=== PATIENT | male | born 1940 | race Caucasian/White ===

== ENCOUNTER 2018-09-23 20:28 | Inpatient (IN) | payer MEDICARE ==
--- NOTE | 2018-09-23 21:09 | RAD REPORT ---
EXAM DESCRIPTION: RAD - Chest Single View - 09/23/2018 9:03 pm CLINICAL HISTORY: MALAISE Chest pain. COMPARISON: No comparisons FINDINGS: Portable technique limits examination quality. Emphysematous changes are present throughout the lungs. The heart is normal in size. Healed posterior left rib fractures. IMPRESSION: COPD.
--- NOTE | 2018-09-23 21:10 | RAD REPORT ---
EXAM DESCRIPTION: RAD - Hip Right 2 View - 09/23/2018 9:03 pm CLINICAL HISTORY: PAIN Trauma, fall, pain COMPARISON: No comparisons FINDINGS: Subcapital fracture is present of the proximal right femur with varus angulation. No dislo cation seen.
[2018-09-23] MEDS ORDERED: MORPHINE 4 MG/ML SYR ONE ×2 (21:55→23:21)
[2018-09-23 22:02] LABS: Absolute Lymphocytes (CBC) 1.1 K/uL (0.7-4.9); Absolute Monocytes 0.8 K/uL (0.1-1.3); Absolute Neutrophil 6.1 K/uL (1.8-8.0); Basophils % 1.1 % (0-1.3); Eosinophils % 3.1 % (0-4.4); Hematocrit 40.5 % (39.6-49.0); MPV 7.3 fL (7.6-11.3); Monocytes % 9.6 % (3.3-12.3); RBC Red Blood Cell Count 4.61 M/uL (4.33-5.43)
[2018-09-23 22:03] LABS: Protime INR 1.06
[2018-09-23 22:09] LABS: BUN Blood Urea Nitrogen 19 mg/dL (7-18); Bicarbonate 30 mmol/L (21-32); Glucose Level 136 mg/dL (74-106); Potassium 4.5 mmol/L (3.5-5.1); Sodium Level 143 mmol/L (136-145)
--- NOTE | 2018-09-23 22:40 | ER ---
Nurse's Notes [facility] Name: Sterling Moe Age: 78 yrs Sex: Male : 1940 Arrival Date: 09/23/2018 Time: 20:36 Bed 8 Private MD: Diagnosis: Displaced fracture of base of neck of right femur Presentation: 09/23 20:30 Presenting complaint: EMS states: that pt was going down 3 steps and slipped. Negative fc LOC or dizziness. C/O pain to right hip. Noted shorting and external rotation. Care prior to arrival: Cervical collar in place. Placed on backboard. Medication(s) given: zofran 4 mg, Fentanyl 75 mcg IV initiated. 20 GA, in the right forearm, Glucose check: 118. Mechanism of Injury: Fall down 3 steps. Trauma event details: Injury occurred in the [facility], Injury occurred: at home. Injury occurred: September 23, 2018 Injury occurred at: 19:55. 20:30 Acuity: EDVIN 2 fc 20:30 Method Of Arrival: EMS: [facility] 20:30 Transition of care: patient was not received from another setting of care. Onset of fc symptoms was September 23, 2018 at 19:55. Risk Assessment: Do you want to hurt yourself or someone else? Patient reports no desire to harm self or others. Initial Sepsis Screen: Does the patient meet any 2 criteria? HR > 90 bpm. No. Patient's initial sepsis screen is negative. Does the patient have a suspected source of infection? No. Patient's initial sepsis screen is negative. Trauma Activation: Alert Physician: ED Physician; Name: Mora; Notified At: 20:34; Arrived At: 20:34 Physician: General Surgeon; Name: ; Notified At: 20:34; Arrived At: Physician: Radiology; Name: Denia; Notified At: 20:34; Arrived At: 20:34 Physician: Respiratory; Name: ; Notified At: 20:34; Arrived At: Physician: Lab; Name: ; Notified At: 20:34; Arrived At: Historical: - Allergies: 20:48 No Known Allergies; fc - Home Meds: 20:48 Colace 100 mg oral cap 1 cap once daily [Active]; aspirin 81 mg Oral TbEC 1 tab once fc daily [Active]; montelukast 10 mg oral tab 1 tab once daily [Active]; lisinopril 10 mg Oral tab 1 tab once daily [Active]; rosuvastatin 20 mg oral tab 1 tab once daily [Active]; ezetimibe oral oral 1 tab once daily [Active]; donepezil 10 mg oral tab 1 tab once daily [Active]; carbidopa-levodopa 25-100 mg Oral tab 2 tabs 4 times per day [Active]; Phenytoin ER 100 mg cap Oral 4 cap daily [Active]; - PMHx: 20:48 Parkinsons; High Cholesterol; Hyperlipidemia; Hypertension; Diabetes - NIDDM; Seizures; fc - PSHx: 20:48 Appendectomy; fc - Immunization history: Last tetanus immunization: unknown. - Social history:: Smoking status: Patient/guardian denies using tobacco, Patient/guardian denies using alcohol, street drugs. - Ebola Screening: : Patient negative for fever greater than or equal to 101.5 degrees Fahrenheit, and additional compatible Ebola Virus Disease symptoms Patient denies exposure to infectious person Patient denies travel to an Ebola-affected area in the 21 days before illness onset. Screenin:30 Abuse screen: Denies threats or abuse. Tuberculosis screening: No symptoms or risk fc factors identified. 20:42 Nutritional screening: No deficits noted. Fall Risk Fall in past 12 months (25 points). fc Secondary diagnosis (15 points) impaired mobility, Parkinsons. IV access (20 points). Ambulatory Aid- None/Bed Rest/Nurse Assist (0 pts). Gait- Weak (10 pts.). Mental Status- Overestimates/Forgets Limitations (15 pts.). Total Vee Fall Scale indicates High Risk Score (45 or more points). Fall prevention measures have been instituted. Side Rails Up X 2 Placed Close to Nursing Station Frequent Obs/Assessments Occuring Family Present and informed to notify staff if the need to leave the bedside As available patient and family educated on Fall Prevention Program and Strategies. Primary Survey: 20:30 NO uncontrolled hemorrhage observed. A: The patient is alert. Airway: patent, No lp1 supplemental oxygen in use on arrival. Breathing/Chest: Respiratory pattern: regular, Respiratory effort: spontaneous, unlabored, Breath sounds: clear, bilaterally. Chest inspection: symmetrical rise and fall of the chest. Circulation: Skin temperature: warm, dry. Disability Alert. Exposure/Environment: Obvious injury(ies) are noted at this time: Right leg noted to be externally rotated; pulses palpable to dorsalis pedis. 21:30 Reassessment Airway Airway Patent Breathing/Chest Respiratory pattern Regular lp1 Respiratory effort Spontaneous Unlabored Circulation Temperature Warm Dry Disability Alert. Secondary Survey: 20:30 HEENT: No deficits noted. Gastrointestinal: No deficits noted. : No deficits noted. lp1 Musculoskeletal: Range of motion: limited in right hip. Assessment: 20:30 General: Appears uncomfortable, Behavior is appropriate for age. Pain: Complains of lp1 pain in right hip Pain currently is 9 out of 10 on a pain scale. Neuro: Level of Consciousness is awake, alert, obeys commands, Oriented to person, place, situation, Pupils are PERRLA. EENT: No deficits noted. Cardiovascular: Patient's skin is warm and dry. Pulses are 2+ in right dorsalis pedis artery and left dorsalis pedis artery. Respiratory: Airway is patent Respiratory effort is even, unlabored, Respiratory pattern is regular, symmetrical, Breath sounds are clear bilaterally. GI: Abdomen is flat. : No deficits noted. Derm: Skin is fragile, is thin, Skin is dry, Skin is pale. Musculoskeletal: Circulation, motion, and sensation intact. Capillary refill < 3 seconds, in bilateral toes. 21:00 Reassessment: Tiny from [facility] called for update on patient; Will call [facility] at [phone]. 21:45 Reassessment: Patient states discomfort with C-collar in place; aware of need for CT lp1 results before removing C-collar;. 22:16 Reassessment: Patient states no relief from Morphine administered; continued pain to lp1 right hip; Provider notified. 22:35 Reassessment: Patient appears more comfortable after removal of C-collar. lp1 23:32 Reassessment: Patient states no relief from Morphine administered; Patient and daughter lp1 aware of pending admission;. 23:33 Cardiovascular: Pulses are 2+ in right dorsalis pedis artery and left dorsalis pedis lp1 artery. 09/24 00:12 Reassessment: Tiny from [facility] updated on patient begin admitted to [address] Vital Signs: 09/23 20:30 BP 164 / 76; Pulse 93; Resp 18; Temp 98.4(O); Pulse Ox 99% on R/A; Weight 72.57 kg (R); fc Height 6 ft. 2 in. (187.96 cm) (R); Pain 3/10; 22:00 BP 166 / 87; Pulse 93; Resp 18; Pulse Ox 97% on R/A; lp1 22:45 BP 153 / 80; Pulse 92; Resp 18; Pulse Ox 98% on R/A; 1 23:30 BP 164 / 71; Pulse 96; Resp 18; Pulse Ox 98% on R/A; Pain 9/10; lp1 04 00:31 BP 167 / 72; Pulse 92; Resp 18; Pulse Ox 98% on R/A; [facility] 09/23 20:30 Body Mass Index 20.54 (72.57 kg, 187.96 cm) fc Aiken Coma Score: 09/23 20:30 Eye Response: spontaneous(4). Verbal Response: oriented(5). Motor Response: obeys fc commands(6). Total: 15. Trauma Score (Adult): 20:30 Eye Response: spontaneous(1); Verbal Response: oriented(1); Motor Response: obeys fc commands(2); Systolic BP: > 89 mm Hg(4); Respiratory Rate: 10 to 29 per min(4); Hood Score: 15; Trauma Score: 12 22:00 Eye Response: spontaneous(1); Verbal Response: oriented(1); Motor Response: obeys lp1 commands(2); Systolic BP: > 89 mm Hg(4); Respiratory Rate: 10 to 29 per min(4); Aiken Score: 15; Trauma Score: 12 ED Course: 20:30 Patient has correct armband on for positive identification. Bed in low position. Call fc light in reach. Side rails up X2. 20:30 Arm band placed on Patient placed in an exam room, on a stretcher. fc 20:30 Patient maintains SpO2 saturation greater than 95% on room air. fc 20:32 Thermoregulation: warm blanket given to patient. fc 20:36 Patient arrived in ED. fc 20:36 Karlo Velazco MD is Attending Physician. gs 20:39 Triage completed. fc 20:42 personnel monitor on. Pulse ox on. NIBP on. fc 21:00 Maintain EMS IV. Dressing intact. Site clean \T\ dry. Gauge \T\ site: 20g R FA. lp 1 21:03 XRAY CXR (1 view) In Process Unspecified. EDMS 21:03 Hip Right 2 View XRAY In Process Unspecified. EDMS 21:06 CT Head C Spine In Process Unspecified. EDMS 21:07 Susanna Emanuel, RN is Primary Nurse. lp1 21:53 Inserted saline lock: 20 gauge in right antecubital area, using aseptic technique. ag4 Blood collected. 21:53 EKG done, by ED staff, reviewed by Karlo eVlazco MD. ag4 22:39 Mariano Flores MD is Hospitalizing Provider. gs 23:31 No provider procedures requiring assistance completed. Patient admitted, IV remains in lp1 place. Administered Medications: 21:46 Drug: morphine 4 mg Route: IVP; Site: right antecubital; lp1 22:10 Follow up: Response: Pain is unchanged, physician notified lp1 23:12 Drug: morphine 4 mg Route: IVP; Site: right antecubital; lp1 23:40 Follow up: Response: Pain is unchanged, physician notified lp1 Intake: 23:30 PO: 0ml; Total: 0ml. lp1 Output: 23:30 Urine: 0ml; Total: 0ml. lp1 Outcome: 22:39 Decision to Hospitalize by Provider. gs 23:32 Condition: stable lp1 23:32 Instructed on the need for admit. 23:44 Patient's length of stay in the Emergency Department was greater than 2 hours. pending lp1 imaging results Patient's length of stay extended due to 04/ 00:14 Admitted to Tele accompanied by tech, via stretcher, room 422, with chart, Report lp1 called to Ela Cook RN by Patience Hankins RN 00:31 Patient left the ED. lp1 Signatures: Dispatcher [employer] Leeanne Norris, JANET GONZALES Susanna Emanuel, JANET RN lp1 Karlo Velazco MD MD Leonides Mahoney ag4 Corrections: (The following items were deleted from the chart) 09/23 23:34 20:30 Cardiovascular: Patient's skin is warm and dry. Pulses are absent in right lp1 dorsalis pedis artery and left dorsalis pedis artery lp1 23:34 23:32 Reassessment: Patient states no relief from Morphine administered; Patient and lp1 daughter aware of pending admission; lp1
--- NOTE | 2018-09-23 22:40 | EDPHYS ---
Physician Documentation [facility] Name: Sterling Moe Age: 78 yrs Sex: Male : 1940 Arrival Date: 09/23/2018 Time: 20:36 Bed 8 Private MD: ED Physician Karlo Velazco HPI: 09/23 22:29 This 78 yrs old Male presents to ER via EMS with complaints of Fall Injury. gs 22:29 Details of fall: The patient fell from an upright position, while walking, fell down gs 2-3 steps. Onset: The symptoms/episode began/occurred acutely, just prior to arrival. Associated injuries: The patient sustained injury to the head, neck injury, right hip, obvious fracture. Severity of symptoms: At their worst the symptoms were severe, in the emergency department the symptoms are unchanged. The patient has not experienced similar symptoms in the past. The patient has not recently seen a physician. Historical: - Allergies: 20:48 No Known Allergies; fc - Home Meds: 20:48 Colace 100 mg oral cap 1 cap once daily [Active]; aspirin 81 mg Oral TbEC 1 tab once fc daily [Active]; montelukast 10 mg oral tab 1 tab once daily [Active]; lisinopril 10 mg Oral tab 1 tab once daily [Active]; rosuvastatin 20 mg oral tab 1 tab once daily [Active]; ezetimibe oral oral 1 tab once daily [Active]; donepezil 10 mg oral tab 1 tab once daily [Active]; carbidopa-levodopa 25-100 mg Oral tab 2 tabs 4 times per day [Active]; Phenytoin ER 100 mg cap Oral 4 cap daily [Active]; - PMHx: 20:48 Parkinsons; High Cholesterol; Hyperlipidemia; Hypertension; Diabetes - NIDDM; Seizures; fc - PSHx: 20:48 Appendectomy; fc - Immunization history: Last tetanus immunization: unknown. - Social history:: Smoking status: Patient/guardian denies using tobacco, Patient/guardian denies using alcohol, street drugs. - Ebola Screening: : Patient negative for fever greater than or equal to 101.5 degrees Fahrenheit, and additional compatible Ebola Virus Disease symptoms Patient denies exposure to infectious person Patient denies travel to an Ebola-affected area in the 21 days before illness onset. ROS: 22:29 All other systems are negative. gs Exam: 22:29 Head/Face: Normocephalic, atraumatic. Eyes: Pupils equal round and reactive to light, gs extra-ocular motions intact. Lids and lashes normal. Conjunctiva and sclera are non-icteric and not injected. Cornea within normal limits. Periorbital areas with no swelling, redness, or edema. ENT: Nares patent. No nasal discharge, no septal abnormalities noted. Tympanic membranes are normal and external auditory canals are clear. Oropharynx with no redness, swelling, or masses, exudates, or evidence of obstruction, uvula midline. Mucous membranes moist. Chest/axilla: Normal chest wall appearance and motion. Nontender with no deformity. No lesions are appreciated. Cardiovascular: Regular rate and rhythm with a normal S1 and S2. No gallops, murmurs, or rubs. Normal PMI, no JVD. No pulse deficits. Respiratory: Lungs have equal breath sounds bilaterally, clear to auscultation and percussion. No rales, rhonchi or wheezes noted. No increased work of breathing, no retractions or nasal flaring. Abdomen/GI: Soft, non-tender, with normal bowel sounds. No distension or tympany. No guarding or rebound. No evidence of tenderness throughout. Back: No spinal tenderness. No costovertebral tenderness. Full range of motion. 22:29 Skin: Warm, dry with normal turgor. Normal color with no rashes, no lesions, and no evidence of cellulitis. Neuro: Awake and alert, GCS 15, oriented to person, place, time, and situation. Cranial nerves II-XII grossly intact. Motor strength 5/5 in all extremities. Sensory grossly intact. Cerebellar exam normal. Normal gait. 22:29 Constitutional: The patient appears alert, awake, in obvious distress, severely distressed. 22:29 Neck: C-spine: C-collar placed APPLIQUE CUTTER, Back board APPLIQUE CUTTER 22:29 Musculoskeletal/extremity: Circulation is intact in all extremities. Sensation intact. Joints: the right hip displays deformity, limited range of motion, pain at rest, painful range of motion, tenderness. Vital Signs: 20:30 BP 164 / 76; Pulse 93; Resp 18; Temp 98.4(O); Pulse Ox 99% on R/A; Weight 72.57 kg (R); fc Height 6 ft. 2 in. (187.96 cm) (R); Pain 3/10; 22:00 BP 166 / 87; Pulse 93; Resp 18; Pulse Ox 97% on R/A; lp1 22:45 BP 153 / 80; Pulse 92; Resp 18; Pulse Ox 98% on R/A; lp1 23:30 BP 164 / 71; Pulse 96; Resp 18; Pulse Ox 98% on R/A; Pain 9/10; lp1 04 00:31 BP 167 / 72; Pulse 92; Resp 18; Pulse Ox 98% on R/A; lp1 09/23 20:30 Body Mass Index 20.54 (72.57 kg, 187.96 cm) fc Fertile Coma Score: 09/23 20:30 Eye Response: spontaneous(4). Verbal Response: oriented(5). Motor Response: obeys fc commands(6). Total: 15. Trauma Score (Adult): 20:30 Eye Response: spontaneous(1); Verbal Response: oriented(1); Motor Response: obeys fc commands(2); Systolic BP: > 89 mm Hg(4); Respiratory Rate: 10 to 29 per min(4); Hood Score: 15; Trauma Score: 12 22:00 Eye Response: spontaneous(1); Verbal Response: oriented(1); Motor Response: obeys lp1 commands(2); Systolic BP: > 89 mm Hg(4); Respiratory Rate: 10 to 29 per min(4); Fertile Score: 15; Trauma Score: 12 MDM: 20:42 Patient medically screened. gs 22:29 Differential diagnosis: closed head injury, fracture, multiple trauma, sprain. Data gs reviewed: vital signs, nurses notes. Counseling: I had a detailed discussion with the patient and/or guardian regarding: the historical points, exam findings, and any diagnostic results supporting the discharge/admit diagnosis, lab results, radiology results, the need for further work-up and treatment in the hospital. Response to treatment: the patient's symptoms have mildly improved after treatment, and as a result, I will admit patient. 09/23 20:45 Order name: Basic Metabolic Panel; Complete Time: 23:08 09/23 20:45 Order name: CBC with Diff; Complete Time: 23:08 09/23 20:45 Order name: Protime (+inr); Complete Time: 23:09 09/23 20:45 Order name: XRAY CXR (1 view); Complete Time: 21:57 09/23 20:45 Order name: Hip Right 2 View XRAY; Complete Time: 21:57 09/23 20:45 Order name: CT Head C Spine 09/23 20:45 Order name: EKG - Nurse/Tech; Complete Time: 22:08 Administered Medications: 21:46 Drug: morphine 4 mg Route: IVP; Site: right antecubital; lp1 22:10 Follow up: Response: Pain is unchanged, physician notified lp1 23:12 Drug: morphine 4 mg Route: IVP; Site: right antecubital; lp1 23:40 Follow up: Response: Pain is unchanged, physician notified lp1 Disposition: 09/23/18 22:39 Hospitalization ordered by Mariano Flores for Inpatient Admission. Preliminary diagnosis is Displaced fracture of base of neck of right femur. - Bed requested for Telemetry/MedSurg (Inpatient). - Status is Inpatient Admission. lp1 - Condition is Stable. - Problem is new. - Symptoms have improved. UTI on Admission? No Critical care time excluding procedures: 22:40 Critical care time: Bedside Care: 10 minutes, Consultation: 10 minutes, Family gs Intervention: 10 minutes. Total time: 30 minutes Signatures: Dispatcher [employer] EDLeeanne Ernandez RN RN Susanna Emanuel RN RN [facility] Aruna Washington RN RN Karlo Velazco MD MD Corrections: (The following items were deleted from the chart) 23:17 22:39 Hospitalization Ordered by Mariano Flores MD for Inpatient Admission. Preliminary cg diagnosis is Displaced fracture of base of neck of right femur. Bed requested for Telemetry/MedSurg (Inpatient). Status is Inpatient Admission. Condition is Stable. Problem is new. Symptoms have improved. UTI on Admission? No. 09/24 00:31 09/23 23:17 09/23/2018 22:39 Hospitalization Ordered by Mariano Flores MD for Inpatient lp1 Admission. Preliminary diagnosis is Displaced fracture of base of neck of right femur. Bed requested for Telemetry/MedSurg (Inpatient). Status is Inpatient Admission. Condition is Stable. Problem is new. Symptoms have improved. UTI on Admission? No. cg
--- NOTE | 2018-09-23 23:18 | P.HP ---
Certification for Inpatient Patient admitted to: Inpatient With expected LOS: >2 Midnights Practitioner: I am a practitioner with admitting privileges, knowledge of patient current condition, hospital course, and medical plan of care. Services: Services provided to patient in accordance with Admission requirements found in Title 42 Section 412.3 of the Code of Federal Regulations Patient History Date of Service: 09/23/18 Reason for admission: right hip fracture History of Present Illness: Mr Moe is a 78 years old male with history of COPD, HTN, dyslipidemia, seizure disorder, DM II, who unfortunately fell to the ground landing over his right side. Immediately he start feeling significant right hip pain, and he was unable to bear weight. He denied dizziness or palpitations prior to the fall. He states that misstep and fell. Lab work is mostly unremarkable. Right pelvic XR remarkable for subcapital fracture of right proximal femur. He is afebrile, BP 176/64, O2 sat 99% on RA. Home medications list reviewed: Yes - Past Medical/Surgical History -: COPD -: HTN -: Parkinson's disease -: dyslipidemia -: DM II -: seizures -: appendectomy - Family History Family History: Reviewed- Non-Contributory - Social History Smoking Status: Former smoker CD- Drugs: No Place of Residence: Home Review of Systems 10-point ROS is otherwise unremarkable Physical Examination - Physical Exam General: Alert, In no apparent distress HEENT: Atraumatic, PERRLA, Mucous membr. moist/pink, EOMI, Sclerae nonicteric Neck: Supple, 2+ carotid pulse no bruit, No LAD, Without JVD or thyroid abnormality Respiratory: Clear to auscultation bilaterally, Normal air movement Cardiovascular: Regular rate/rhythm, Normal S1 S2 Gastrointestinal: Normal bowel sounds, No tenderness Musculoskeletal: No tenderness Integumentary: No rashes Neurological: Normal gait, Normal speech, Normal strength at 5/5 x4 extr, Normal tone, Normal affect Lymphatics: No axilla or inguinal lymphadenopathy - Studies Laboratory Data (last 24 hrs) 09/23/18 21:48: PT 12.5, INR 1.06 09/23/18 21:48: WBC 8.3, Hgb 13.5 L, Hct 40.5, Plt Count 427 H 09/23/18 21:48: Sodium 143, Potassium 4.5, BUN 19 H, Creatinine 0.73, Glucose 136 H Assessment and Plan - Problems (Diagnosis) (1) Hip fracture Current Visit: Yes Status: Acute Qualifiers: Encounter type: initial encounter Fracture type: closed Laterality: right Qualified Code(s): S72.001A - Fracture of unspecified part of neck of right femur, initial encounter for closed fracture (2) Diabetes mellitus Current Visit: Yes Status: Acute Qualifiers: Diabetes mellitus type: type 2 Diabetes mellitus detention insulin use: without detention use Diabetes mellitus complication status: with unspecified complications Qualified Code(s): E11.8 - Type 2 diabetes mellitus with unspecified complications (3) Seizure disorder Current Visit: Yes Status: Acute (4) COPD (chronic obstructive pulmonary disease) Current Visit: Yes Status: Acute Qualifiers: COPD type: emphysema Emphysema type: unspecified Qualified Code(s): J43.9 - Emphysema, unspecified (5) HTN (hypertension) Current Visit: Yes Status: Acute Qualifiers: Hypertension type: essential hypertension Qualified Code(s): I10 - Essential (primary) hypertension (6) Parkinson disease Current Visit: Yes Status: Acute - Plan The patient will be admitted to the hospital due to right hip fracture. Will keep him NPO, start IV fluids, pain control, SSI for BS control. Dr Domínguez was consulted, he will see the patient in AM. - Advance Directives Does patient have a Living Will: No Does patient have a Durable POA for Healthcare: No - Code Status/Comfort Care Code Status Assessed: Yes Code Status: Full Code
[2018-09-23] MEDS ORDERED: IPRATROPIUM BROM 0.5MG/2.5ML NEB PRN (23:42)
[2018-09-23] MEDS ORDERED: ALBUTEROL 2.5 MG/3 ML NEB SOL NEB PRN (23:42)
[2018-09-23] MEDS ORDERED: ONDANSETRON 4 MG/2 ML VIAL IV PRN (23:42)
[2018-09-23] MEDS ORDERED: KETOROLAC 30 MG/ML INJ IV PRN (23:42)
[2018-09-23] MEDS ORDERED: MORPHINE 2 MG/ML SYR IV PRN (23:42)
[2018-09-24] MEDS: NA CHLORIDE 0.9% 1,000 ML IV SCH ×3 (01:13→21:01)
[2018-09-24 05:02] LABS: Absolute Lymphocytes (CBC) 1.2 K/uL (0.7-4.9); Absolute Monocytes 1.2 K/uL (0.1-1.3); Absolute Neutrophil 8.5 K/uL (1.8-8.0); Basophils % 0.8 % (0-1.3); Eosinophils % 1.5 % (0-4.4); Hematocrit 39.2 % (39.6-49.0); Lymphocytes % 10.9 % (15.3-44.8); MPV 7.2 fL (7.6-11.3); RBC Red Blood Cell Count 4.42 M/uL (4.33-5.43)
[2018-09-24 05:16] LABS: BUN Blood Urea Nitrogen 21 mg/dL (7-18); Bicarbonate 29 mmol/L (21-32); Glucose Level 133 mg/dL (74-106); Sodium Level 141 mmol/L (136-145)
[2018-09-24] MEDS: INSULIN -REGULAR HUMAN 50 UNIT/0.5 ML ML SQ SCH ×5 (06:00→21:00)
[2018-09-24] MEDS: KETOROLAC 30 MG/ML INJ IV PRN ×2 (10:58→17:46)
[2018-09-24] MEDS: EZETIMIBE 10 MG TAB PO SCH (11:42)
[2018-09-24] MEDS: LISINOPRIL 10 MG TAB PO SCH (11:42)
[2018-09-24] MEDS: CARBIDOPA/LEVODOPA 25/100 TAB PO SCH ×3 (11:43→21:01)
[2018-09-24] MEDS: DOCUSATE NA 100 MG CAP PO SCH (11:43)
[2018-09-24] MEDS: MONTELUKAST 10 MG TAB PO SCH (11:43)
--- NOTE | 2018-09-24 12:12 | RAD REPORT ---
EXAM DESCRIPTION: CT - Head C Spine Mpr Wo Con - 09/23/2018 9:31 pm CLINICAL HISTORY: The patient is 78 years old and is Male; PAIN TECHNIQUE: Axial computed tomography images of the head/brain and cervical spine without intravenous contrast. Sagittal and coronal reformatted images were created and reviewed. This CT exam was pe rformed using one or more of the following dose reduction techniques: automated exposure control, a djustment of the mA and/or kV according to patient size, and/or use of iterative reconstruction techn ique. COMPARISON: No relevant prior studies available. FINDINGS: BRAIN: There is diffuse cerebral atrophy present, consistent with this patient's age. There is patchy hypoattenuation of the deep white matter which is non-specific, but most likely owing to chronic small vessel ischemic change in a patient of this age group. 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 No intracranial hemorrhage, mass effect, or midline shift is seen. There are no extra-axial fluid collections. VENTRICLES: Unremarkable. No ventriculomegaly. SKULL: No acute fracture. SINUSES: Mucoperiosteal thickening of the ethmoid air cells and right maxillary sinus is present . Large slightly heterogeneous density within the left maxillary sinus is present. The uvula appears to be significantly enlarged. The appearance suggests possible continuity with the ostiomeatal comple x and paranasal sinuses. MASTOID AIR CELLS: Unremarkable as visualized. No mastoid effusion. VERTEBRAE: The vertebral body heights and alignment are maintained. No acute fracture. DISCS/SPINAL CANAL/NEURAL FORAMINA: There is multi-level intervertebral disc height loss. There are disc-osteophyte complexes at several levels, with associated mild spinal canal narrowing. There i s also facet hypertrophy and uncovertebral joint osteophytosis, with associated multilevel neural for aminal narrowing. SOFT TISSUES: The soft tissues are normal. LUNG APICES: The lung apices are clear. IMPRESSION: 1. No acute intracranial findings. 2. Findings suggestive of a large left maxillary sinus mucus retention cyst versus polyp. 3. Moderate spondylosis of the cervical spine without acute findings. 4. Apparent enlargement of the uvula with concern for continuity with the ostiomeatal complex and t he paranasal sinuses. This raises the possibility of an antrochoanal polyp. Recommend direct visualiz ation. Electronically signed by: Lizzeth Deleon MD 09/23/2018 9:43 PM CDT Due to temporary technical issues with the PACS/Fluency reporting system, reports are being signed by the in house radiologist as a courtesy to ensure prompt reporting. The interpreting radiologist is f ully responsible for the content of the report.
--- NOTE | 2018-09-24 16:09 | P.PN ---
Subjective Date of Service: 09/24/18 Chief Complaint: right hip fracture Subjective: No C/O voiced, Tolerating diet, Doing well, Other (Rescheduled for Surgery evangelist AM. Denies any SOB, CP, N/V or any other symptoms) Review of Systems 10-point ROS is otherwise unremarkable Physical Examination - Vital Signs Temperature: 98.6 F Blood Pressure: 149/68 Pulse: 83 Respirations: 17 Pulse Ox (%): 99 - Physical Exam General: Alert, In no apparent distress HEENT: Atraumatic, PERRLA, EOMI Neck: Supple, JVD not distended Respiratory: Clear to auscultation bilaterally, Normal air movement Cardiovascular: Regular rate/rhythm, Normal S1 S2 Gastrointestinal: Normal bowel sounds, No tenderness Musculoskeletal: No tenderness Integumentary: No rashes Neurological: Normal speech, Normal tone, Normal affect Lymphatics: No axilla or inguinal lymphadenopathy - Studies Laboratory Data (last 24 hrs) 09/23/18 21:48: PT 12.5, INR 1.06 09/23/18 21:48: WBC 8.3, Hgb 13.5 L, Hct 40.5, Plt Count 427 H 09/23/18 21:48: Sodium 143, Potassium 4.5, BUN 19 H, Creatinine 0.73, Glucose 136 H Medications List Reviewed: Yes Assessment And Plan - Current Problems (Diagnosis) (1) Hip fracture Current Visit: Yes Status: Acute Plan: Hip Fracture s.p Fall -Fall precautions. -orthopedics Consulted. Reccs Appreciated -OR procedure evangelist AM -NPO after midnight -repeat lab in AM Qualifiers: Encounter type: initial encounter Fracture type: closed Laterality: right Qualified Code(s): S72.001A - Fracture of unspecified part of neck of right femur, initial encounter for closed fracture (2) COPD (chronic obstructive pulmonary disease) Current Visit: Yes Status: Chronic Qualifiers: COPD type: emphysema Emphysema type: unspecified Qualified Code(s): J43.9 - Emphysema, unspecified (3) Diabetes mellitus Current Visit: Yes Status: Chronic Qualifiers: Diabetes mellitus type: type 2 Diabetes mellitus terminal manager insulin use: without terminal manager use Diabetes mellitus complication status: with unspecified complications Qualified Code(s): E11.8 - Type 2 diabetes mellitus with unspecified complications (4) HTN (hypertension) Current Visit: Yes Status: Chronic Qualifiers: Hypertension type: essential hypertension Qualified Code(s): I10 - Essential (primary) hypertension (5) Parkinson disease Current Visit: Yes Status: Chronic (6) Seizure disorder Current Visit: Yes Status: Chronic - Plan Pending Improvement. OR procedure evangelist AM. NPO after midnight. F.u post procedure Discharge Plan: Home Plan to discharge in: Greater than 2 days - Code Status/Comfort Care Code Status Assessed: Yes Critical Care: No
--- NOTE | 2018-09-24 17:20 | P.CNS ---
Date of Consult: 09/24/18 Reason for Consult: Right hip fracture Requesting Physician: Karlo Velazco Chief Complaint: Right hip fracture History of Present Illness: This 78-year-old male was walking in the dark and forgot about 3 steps down at the end of the [place] to step off in the air and tumble down those steps. He denies dizziness or loss of consciousness and currently denies injury to head or neck or back. Brought to the emergency department at [facility], x-rays have shown a displaced femoral neck fracture right hip proximal femur. Allergies No Known Allergies Allergy (Unverified 09/23/18 23:30) Home Medications: Aspirin 81 mg PO DAILY 09/24/18 Carbidopa/Levodopa [Carbidopa-Levo 25-100 mg Odt] 2 tab PO QID 09/24/18 Docusate [Colace Cap] 100 mg PO DAILY 09/24/18 Donepezil HCl 10 mg PO DAILY 09/24/18 Ezetimibe [Zetia] 10 mg PO DAILY 09/24/18 Lisinopril [Prinivil] 10 mg PO DAILY 09/24/18 Montelukast [Singulair] 10 mg PO DAILY 09/24/18 PHENYTOIN ER Cap [Dilantin ER Cap] 4 cap PO BEDTIME 09/24/18 Rosuvastatin Calcium [Crestor] 20 mg PO BEDTIME 09/24/18 - Past Medical/Surgical History Diabetic: Yes -: COPD -: HTN -: Parkinson's disease -: dyslipidemia -: DM II -: seizures -: appendectomy - Family History Mother Medical History: Heart disease, Diabetes Father Medical History: Heart disease, Diabetes - Social History Alcohol use: No CD- Drugs: No Caffeine use: Yes Place of Residence: Home Review of Systems 10-point ROS is otherwise unremarkable Physical Examination Temp Pulse Resp BP Pulse Ox 98.6 F 83 17 149/68 H 99 09/24/18 16:08 09/24/18 16:08 09/24/18 16:08 09/24/18 16:08 09/24/18 16:08 General: In no apparent distress, Oriented x3, Cooperative HEENT: Atraumatic, Normocephalic Neck: Supple Respiratory: Clear to auscultation bilaterally, Normal air movement Cardiovascular: Normal pulses Capillary refill: Brisk Gastrointestinal: Normal bowel sounds, Soft and benign, Non-distended Musculoskeletal: Swelling (mild pedal edema with the right foot externally rotated and shortened right lower extremity.), Tenderness (with any significant movement of the right lower extremity.) Integumentary: No breakdown, No significant lesion Neurological: Sensation intact External genitalia: Deferred Rectal: Deferred Laboratory Data (last 24 hrs) 09/23/18 21:48: PT 12.5, INR 1.06 09/23/18 21:48: WBC 8.3, Hgb 13.5 L, Hct 40.5, Plt Count 427 H 09/23/18 21:48: Sodium 143, Potassium 4.5, BUN 19 H, Creatinine 0.73, Glucose 136 H Imagings Data: CT head and neck done 12/23/[address] [facility] radiology IMPRESSION: 1. No acute intracranial findings. 2. Findings suggestive of a large left maxillary sinus mucus retention cyst versus polyp. 3. Moderate spondylosis of the cervical spine without acute findings. 4. Apparent enlargement of the uvula with concern for continuity with the ostiomeatal complex and the paranasal sinuses. This raises the possibility of an antrochoanal polyp. Recommend direct visualization RAD - Hip Right 2 View - 09/23/2018 9:03 pm CLINICAL HISTORY: PAIN Trauma, fall, pain COMPARISON: No comparisons FINDINGS: Subcapital fracture is present of the proximal right femur with varus angulation. No dislocation seen. Dictated By: Tyler Brink MD [id number]/23/[id number] - Problems (1) Closed displaced fracture of right femoral neck Current Visit: Yes Status: Acute (2) Hip fracture Onset Date: ~09/23/18 Current Visit: Yes Status: Acute Plan: Assessment: Closed displaced right femoral neck fracture is recommended for insertion of a cemented unipolar juan-plasty prosthesis. Risks and benefits were discussed at length with the patient and daughter with all questions answered, and they both elected to proceed with an elective insertion of hip prosthesis for the right femoral neck fracture. Plan: The patient will be npo after midnight, and scheduled to follow an arthroscopic procedure on 09/25/2018 at approximately 9:30 to 10:00. Qualifiers: Encounter type: initial encounter Fracture type: closed Laterality: right Qualified Code(s): S72.001A - Fracture of unspecified part of neck of right femur, initial encounter for closed fracture
[2018-09-24] MEDS ORDERED: CEFAZOLIN/SWI 1gm 1 GM/10 ML SYR IV SCH (18:15)
[2018-09-24] MEDS ORDERED: DONEPEZIL HCL 5 MG TAB PO SCH (21:00)
[2018-09-24] MEDS ORDERED: PHENYTOIN ER 100 MG CAP PO SCH (21:00)
[2018-09-24] MEDS ORDERED: LORAZEPAM 1 MG TABLET PO SCH (21:00)
[2018-09-24] MEDS ORDERED: ROSUVASTATIN 10 MG TAB PO SCH (21:00)
[2018-09-24 21:24] LABS: Urine Appearance CLOUDY; Urine Blood 3+ (NEG); Urine Color ORANGE; Urine Glucose NEGATIVE (NEG); Urine Protein 1+ (NEG); Urine Specific Gravity 1.025 (1.005-1.030); Urine Urobilinogen 0.2 mg/dL (0.2-1.0); Urine pH 5.5 (5.0-7.0)
[2018-09-24 21:26] LABS: Urine Bilirubin NEGATIVE (NEG); Urine Microscopic Reflex ORDER UMIC
[2018-09-24 21:36] LABS: Urine Bacteria 20-50 /HPF (NONE SEEN); Urine Culture Reflex Order REFLEXED; Urine RBC LOADED /HPF (NONE SEEN)
[2018-09-25] MEDS: KETOROLAC 30 MG/ML INJ IV PRN (01:23)
[2018-09-25] MEDS: NA CHLORIDE 0.9% 1,000 ML IV SCH ×2 (05:45→15:00)
[2018-09-25] MEDS: INSULIN -REGULAR HUMAN 50 UNIT/0.5 ML ML SQ SCH ×4 (07:30→21:00)
[2018-09-25] MEDS ORDERED: NA CHLORIDE 0.9% 1,000 ML ONE ×2 (07:54→08:50)
[2018-09-25] MEDS ORDERED: TRANEXAMIC ACID 1,000 MG in NA CHLORIDE 0.9% 50 ML IV ONE (08:00)
[2018-09-25] MEDS ORDERED: CEFAZOLIN/SWI 1gm 1 GM/10 ML SYR ONE (08:51)
[2018-09-25] MEDS: BUPIVACA 0.25%/EPI 0.0005% MDV 50 ML VIAL ONE ×2 (08:54→12:45)
[2018-09-25] MEDS: CEFAZOLIN/NS 1gm 1 GM/50 ML BAG IVPB SCH ×2 (08:55→09:25)
[2018-09-25] MEDS ORDERED: FENTANYL CITR 100 MCG/2 ML ONE ×3 (08:57→11:33)
[2018-09-25] MEDS ORDERED: MIDAZOLAM HCL 2 MG/2 ML INJ ONE (08:58)
[2018-09-25] MEDS ORDERED: PROPOFOL 200 MG/20 ML VIAL IV ONE (08:58)
[2018-09-25] MEDS ORDERED: LIDOCAINE 2% MPF 5 ML VIAL ONE (08:58)
[2018-09-25] MEDS ORDERED: ONDANSETRON 4 MG/2 ML VIAL ONE (08:59)
[2018-09-25] MEDS ORDERED: ROCURONIUM 50 MG/5 ML VIAL IV ONE (08:59)
[2018-09-25] MEDS: LISINOPRIL 10 MG TAB PO SCH (09:00)
[2018-09-25] MEDS: EZETIMIBE 10 MG TAB PO SCH (09:00)
[2018-09-25] MEDS: DOCUSATE NA 100 MG CAP PO SCH (09:00)
[2018-09-25] MEDS: MONTELUKAST 10 MG TAB PO SCH (09:00)
[2018-09-25] MEDS: CARBIDOPA/LEVODOPA 25/100 TAB PO SCH ×4 (09:00→21:03)
[2018-09-25] MEDS ORDERED: Phenylephrine HCl 10 MG/ML 1 ML VIAL ONE (10:09)
[2018-09-25] MEDS ORDERED: EPHEDRINE SULF 50 MG/ML VIAL ONE (11:04)
[2018-09-25] MEDS ORDERED: MORPHINE 10 MG/ML VIAL ONE (11:17)
--- NOTE | 2018-09-25 11:35 | EKG ---
Test Date: 2018-09-23 Test Time: 21:46:05 Clinical Services Consultant: ALFREDO MEASUREMENT RESULTS: Intervals: Rate: 92 CT: 144 QRSD: 98 QT: 352 QTc: 435 [place]: P: 51 CT: 144 QRS: 12 T: 63 INTERPRETIVE STATEMENTS: Normal sinus rhythm Low voltage QRS Borderline ECG No previous ECG available for comparison Electronically Signed On 09-24-18 10:49:06 CDT by Gus David
--- NOTE | 2018-09-25 13:02 | P.BOP ---
Preoperative diagnosis: CLOSED DISPLACED RIGHT FEMORAL NECK FRACTURE Postoperative diagnosis: CLOSED DISPLACED RIGHT FEMORAL NECK FRACTURE Primary procedure: INSERTION OF UNIPOLAR CEMENTED HEMIARTHROPLASTY FOR RIGHT HIP FRACTURE Coal Hauler: ARTURO RANKIN Estimated blood loss: 250 mL Specimen: FEMORAL HEAD AND CALCAR YE Findings: SEE POST OP Anesthesia: General Complications: None Drain(s): Urinary catheter Implants: SUMMIT [id number];12/14TAPER-3mm;[id number];[id number] Fluids & blood products: SIMPLEXHVw/GENT2; INJ 30 mL 0.25MARCAINEw/EPI Transferred to: Recovery Room Condition: Good
[2018-09-25 13:27] LABS: Hematocrit 39.3 % (39.6-49.0)
[2018-09-25] MEDS ORDERED: MORPHINE 4 MG/ML SYR IV PRN (13:56)
--- NOTE | 2018-09-25 14:03 | RAD REPORT ---
EXAM DESCRIPTION: RAD - Pelvis - 09/25/2018 1:47 pm CLINICAL HISTORY: S/P RIGHT UNIPOLAR HIP COMPARISON: No comparisons FINDINGS: Right total hip arthroplasty is noted. Skin best are present laterally.
[2018-09-25] MEDS ORDERED: ALBUTEROL 2.5 MG/3 ML NEB SOL NEB PRN (14:24)
[2018-09-25] MEDS ORDERED: IPRATROPIUM BROM 0.5MG/2.5ML NEB PRN (14:25)
[2018-09-25] MEDS ORDERED: ONDANSETRON 4 MG/2 ML VIAL IV PRN (14:26)
[2018-09-25] MEDS ORDERED: KETOROLAC 30 MG/ML INJ IV PRN (14:27)
--- NOTE | 2018-09-25 14:36 | P.PN ---
Subjective Date of Service: 09/25/18 Chief Complaint: Right hip fracture Subjective: No C/O voiced, NPO, Doing well, Other (Awaiting Surgical Procedure) Review of Systems 10-point ROS is otherwise unremarkable Physical Examination - Vital Signs Temperature: 98.1 F Blood Pressure: 178/61 Pulse: 94 Respirations: 16 Pulse Ox (%): 97 - Physical Exam General: Alert, In no apparent distress HEENT: Atraumatic, PERRLA, EOMI Neck: Supple, JVD not distended Respiratory: Clear to auscultation bilaterally, Normal air movement Cardiovascular: Regular rate/rhythm, Normal S1 S2 Gastrointestinal: Normal bowel sounds, No tenderness Musculoskeletal: No tenderness Integumentary: No rashes Neurological: Normal speech, Normal tone, Normal affect Lymphatics: No axilla or inguinal lymphadenopathy - Studies Medications List Reviewed: Yes Assessment And Plan - Current Problems (Diagnosis) (1) Hip fracture Onset Date: ~09/23/18 Current Visit: Yes Status: Acute Plan: Hip Fracture s.p Fall -Fall precautions. -orthopedics Consulted. Reccs Appreciated -OR procedure today -NPO since midnight -Will F.u post Surgery Qualifiers: Encounter type: initial encounter Fracture type: closed Laterality: right Qualified Code(s): S72.001A - Fracture of unspecified part of neck of right femur, initial encounter for closed fracture (2) COPD (chronic obstructive pulmonary disease) Current Visit: Yes Status: Chronic Qualifiers: COPD type: emphysema Emphysema type: unspecified Qualified Code(s): J43.9 - Emphysema, unspecified (3) Diabetes mellitus Current Visit: Yes Status: Chronic Qualifiers: Diabetes mellitus type: type 2 Diabetes mellitus senior graduate advisor insulin use: without jail use Diabetes mellitus complication status: with unspecified complications Qualified Code(s): E11.8 - Type 2 diabetes mellitus with unspecified complications (4) HTN (hypertension) Current Visit: Yes Status: Chronic Qualifiers: Hypertension type: essential hypertension Qualified Code(s): I10 - Essential (primary) hypertension (5) Parkinson disease Current Visit: Yes Status: Chronic (6) Seizure disorder Current Visit: Yes Status: Chronic - Plan Pending Improvement. OR procedure today. F.u post procedure Discharge Plan: Other Plan to discharge in: Greater than 2 days - Code Status/Comfort Care Code Status Assessed: Yes Critical Care: No
[2018-09-25] MEDS: MORPHINE 2 MG/ML SYR IV PRN ×2 (16:18→21:13)
[2018-09-25] MEDS: CEFAZOLIN/SWI 1gm 1 GM/10 ML SYR IV SCH (21:00)
[2018-09-25] MEDS ORDERED: LORAZEPAM 1 MG TABLET PO SCH (21:00)
[2018-09-25] MEDS: DONEPEZIL HCL 5 MG TAB PO SCH (21:03)
[2018-09-25] MEDS: ROSUVASTATIN 10 MG TAB PO SCH (21:03)
[2018-09-25] MEDS: PHENYTOIN ER 100 MG CAP PO SCH (21:03)
[2018-09-26] MEDS: CEFAZOLIN/SWI 1gm 1 GM/10 ML SYR IV SCH (01:31)
[2018-09-26] MEDS: MORPHINE 2 MG/ML SYR IV PRN ×2 (03:54→11:39)
[2018-09-26] MEDS: INSULIN -REGULAR HUMAN 50 UNIT/0.5 ML ML SQ SCH ×4 (07:30→21:00)
[2018-09-26] MEDS: DOCUSATE NA 100 MG CAP PO SCH (10:00)
[2018-09-26] MEDS: CARBIDOPA/LEVODOPA 25/100 TAB PO SCH ×4 (10:00→20:50)
[2018-09-26] MEDS: MONTELUKAST 10 MG TAB PO SCH (10:00)
[2018-09-26] MEDS: EZETIMIBE 10 MG TAB PO SCH (10:00)
[2018-09-26] MEDS: NA CHLORIDE 0.9% 1,000 ML IV SCH ×3 (11:00→12:44)
--- NOTE | 2018-09-26 15:50 | P.PN ---
Subjective Date of Service: 09/26/18 Chief Complaint: Right hip fracture Subjective: No C/O voiced, Tolerating diet, Improving, Working w/ PT, Doing well Review of Systems 10-point ROS is otherwise unremarkable Physical Examination - Vital Signs Temperature: 98.6 F Blood Pressure: 125/60 Pulse: 89 Respirations: 24 Pulse Ox (%): 97 - Physical Exam General: Alert, In no apparent distress HEENT: Atraumatic, PERRLA, EOMI Neck: Supple, JVD not distended Respiratory: Clear to auscultation bilaterally, Normal air movement Cardiovascular: Regular rate/rhythm, Normal S1 S2 Gastrointestinal: Normal bowel sounds, No tenderness Musculoskeletal: No tenderness Integumentary: No rashes Neurological: Normal speech, Normal tone, Normal affect Lymphatics: No axilla or inguinal lymphadenopathy - Studies Medications List Reviewed: Yes Assessment And Plan - Current Problems (Diagnosis) (1) Hip fracture Onset Date: ~09/23/18 Current Visit: Yes Status: Acute Plan: Hip Fracture s.p Fall -Fall precautions. -orthopedics Consulted. Reccs Appreciated -S/p ORIF POD 1 -PT/OT consulted. -DVT ppx per ortho reccs Qualifiers: Encounter type: initial encounter Fracture type: closed Laterality: right Qualified Code(s): S72.001A - Fracture of unspecified part of neck of right femur, initial encounter for closed fracture (2) COPD (chronic obstructive pulmonary disease) Current Visit: Yes Status: Chronic Qualifiers: COPD type: emphysema Emphysema type: unspecified Qualified Code(s): J43.9 - Emphysema, unspecified (3) Diabetes mellitus Current Visit: Yes Status: Chronic Qualifiers: Diabetes mellitus type: type 2 Diabetes mellitus parts counterman insulin use: without senior care use Diabetes mellitus complication status: with unspecified complications Qualified Code(s): E11.8 - Type 2 diabetes mellitus with unspecified complications (4) HTN (hypertension) Current Visit: Yes Status: Chronic Qualifiers: Hypertension type: essential hypertension Qualified Code(s): I10 - Essential (primary) hypertension (5) Parkinson disease Current Visit: Yes Status: Chronic (6) Seizure disorder Current Visit: Yes Status: Chronic - Plan Pending Placement now. Discharge Plan: Other Plan to discharge in: Greater than 2 days - Code Status/Comfort Care Code Status Assessed: Yes Critical Care: No
[2018-09-26] MEDS: ROSUVASTATIN 10 MG TAB PO SCH (20:48)
[2018-09-26] MEDS: PHENYTOIN ER 100 MG CAP PO SCH (20:48)
[2018-09-26] MEDS: HYDROCODONE/APAP 7.5/325 MG TAB PO PRN (20:49)
[2018-09-26] MEDS: DONEPEZIL HCL 5 MG TAB PO SCH (20:49)
[2018-09-27 04:13] LABS: Hematocrit 32.2 % (39.6-49.0)
[2018-09-27] MEDS: INSULIN -REGULAR HUMAN 50 UNIT/0.5 ML ML SQ SCH ×4 (07:30→21:00)
[2018-09-27] MEDS: HYDROCODONE/APAP 7.5/325 MG TAB PO PRN ×3 (09:26→21:47)
[2018-09-27] MEDS: MONTELUKAST 10 MG TAB PO SCH (09:26)
[2018-09-27] MEDS: CARBIDOPA/LEVODOPA 25/100 TAB PO SCH ×4 (09:27→21:48)
[2018-09-27] MEDS: DOCUSATE NA 100 MG CAP PO SCH (09:27)
[2018-09-27] MEDS: EZETIMIBE 10 MG TAB PO SCH (09:28)
[2018-09-27] MEDS: CEFTRIAXONE/SWI 1gm 1 GM/10 ML SYR IV SCH (10:26)
--- NOTE | 2018-09-27 12:24 | P.PN ---
Date of Service: 09/26/18 (POD#1) S: PATIENT RESPONDS VERBALLY, ORIENTED X 3, FOLLOWS INSTRUCTIONS DURING EXAM. O: AFEBRILE, VSS, HGB 11.8 THIS AM, WAS 12.8 POST OP YESTERDAY. BANDAGE CLEAN DRY AND INTACT. PATIENT DEMONSTRATES GOOD MOTION AND STRENGTH FOR RIGHT ANKLE AND FOOT. X-RAY REVIEWED, GOOD POSITION AND LENGTH FOR HEMIPLASTY. AM ENCOUNTER WITH PT WITH MINIMAL MOBILIZATION DUE TO STIFFNESS AND FAILURE TO ATTEMPT INSTRUCTIONS. PM ENCOUNTER LIMITED BY SLEEPINESS AND REFUSAL OF PARTICIPATION. A: POOR PROGRESS DAY 1 POST OP. P: PATIENT ENCOURAGED TO MAKE EFFORT TO PARTICIPATE. PARKINSONISM MAY BE REASON FOR STIFFNESS AND DIFFICULTY INITIATING EFFORT TO STAND.
--- NOTE | 2018-09-27 16:16 | P.PN ---
Subjective Date of Service: 09/27/18 Chief Complaint: Right hip fracture Subjective: No C/O voiced, Ambulating, Improving, Working w/ PT, Doing well, Other (Did start having hematuria) Review of Systems 10-point ROS is otherwise unremarkable Physical Examination - Vital Signs Temperature: 98.5 F Blood Pressure: 120/57 Pulse: 79 Respirations: 16 Pulse Ox (%): 98 - Physical Exam General: Alert, In no apparent distress HEENT: Atraumatic, PERRLA, EOMI Neck: Supple, JVD not distended Respiratory: Normal air movement, Rhonchi/gurgles Cardiovascular: Regular rate/rhythm, Normal S1 S2 Gastrointestinal: Normal bowel sounds, No tenderness Musculoskeletal: No tenderness Integumentary: No rashes Neurological: Normal speech, Normal tone, Normal affect Lymphatics: No axilla or inguinal lymphadenopathy Urinary: Cancino catheter (Hematuria ) - Studies Medications List Reviewed: Yes Assessment And Plan - Current Problems (Diagnosis) (1) Hematuria Current Visit: Yes Status: Acute Plan: Gross Hematuria most likely 2.2 to UTI vs BPH vs mass -Urology consulted. Appreciated Reccs -Bladder irrigation and started on IV rocephin Qualifiers: Hematuria type: gross Qualified Code(s): R31.0 - Gross hematuria (2) Hip fracture Onset Date: ~09/23/18 Current Visit: Yes Status: Acute Plan: Hip Fracture s.p Fall -Fall precautions. -orthopedics Consulted. Reccs Appreciated -S/p ORIF POD 2 -PT/OT consulted. -DVT ppx per ortho reccs Qualifiers: Encounter type: initial encounter Fracture type: closed Laterality: right Qualified Code(s): S72.001A - Fracture of unspecified part of neck of right femur, initial encounter for closed fracture (3) COPD (chronic obstructive pulmonary disease) Current Visit: Yes Status: Chronic Qualifiers: COPD type: emphysema Emphysema type: unspecified Qualified Code(s): J43.9 - Emphysema, unspecified (4) Diabetes mellitus Current Visit: Yes Status: Chronic Qualifiers: Diabetes mellitus type: type 2 Diabetes mellitus assisted insulin use: without assisted use Diabetes mellitus complication status: with unspecified complications Qualified Code(s): E11.8 - Type 2 diabetes mellitus with unspecified complications (5) HTN (hypertension) Current Visit: Yes Status: Chronic Qualifiers: Hypertension type: essential hypertension Qualified Code(s): I10 - Essential (primary) hypertension (6) Parkinson disease Current Visit: Yes Status: Chronic (7) Seizure disorder Current Visit: Yes Status: Chronic
--- NOTE | 2018-09-27 19:48 | CON ---
History Of Present Illness: A 78-year-old gentleman with history of COPD, hypertension, dyslipidemia, seizure disorder, diabetes type 2, who fell and broke his right hip. The patient is now status post surgical repair done on 02/[address] Amaury Domínguez. The patient had a closed displaced right femoral neck fracture and had the procedure done of insertion of unipolar cemented hemiarthroplasty for right hip fracture. Past Medical History: COPD, hypertension, Parkinson disease, dyslipidemia, diabetes type 2, seizures, appendectomy. Family History: Noncontributory. Social History: Former smoker. No drug use. Resides at home. Review of Systems: Ten points, otherwise unremarkable. Physical Examination: General: The patient is awake, afebrile, and stable. No acute distress. HEENT: Atraumatic and normocephalic. Respiratory: Clear. Cardiovascular: S1, S2. Gastrointestinal: Soft. Musculoskeletal: Mild tenderness. Skin: No rashes. Neurologic: Intact. Laboratory Data: Reviewed PTT/INR. H and H are 10 and 32, down from 12 and 39 on admission. Urine showed 3+ blood, nitrite negative, esterase 2+, RBCs loaded , white count 10 to 20, bacteria 20 to 50. Microbiology showing mixed qasim so far. Assessment/plan: The patient had gross hematuria with catheter. On manual irrigation by the nurse it immediately cleared. Seems to be Cancino trauma related. The patient is on IV Rocephin that will cover the urinary tract infection if possible, although I am not convinced it is urinary tract infection , seems to be more of Cancino trauma. Dr. Carrero has ordered a bladder ultrasound to check for masses, which is fine. We will see what that shows. LORENA/MODJoanie Voice ID: [id number] Report ID: [id number] JANEEN
--- NOTE | 2018-09-27 20:25 | RAD REPORT ---
EXAM DESCRIPTION: US - Renal Ultrasound-Complete - 09/27/2018 8:07 pm CLINICAL HISTORY: . Hematuria COMPARISON: None. FINDINGS: The right kidney measures 12 cm with an increased echotexture. The left kidney measures 12 cm with an increased echotexture. 1 centimeter left renal cyst Hydronephrosis is not seen. IMPRESSION: Increased renal echotexture consistent with parenchymal disease
--- NOTE | 2018-09-27 20:26 | RAD REPORT ---
EXAM DESCRIPTION: US - Urinary Bladder - 09/27/2018 8:09 pm CLINICAL HISTORY: Hematuria FINDINGS: Prevoid bladder volume equals 61 cc Postvoid bladder volume equals 22 cc A Cancino catheter is present within the bladder. No ascites seen IMPRESSION: Prevoid bladder volume equals 61 cc Postvoid bladder volume equals 22 cc .
[2018-09-27] MEDS: DONEPEZIL HCL 5 MG TAB PO SCH (21:47)
[2018-09-27] MEDS: ROSUVASTATIN 10 MG TAB PO SCH (21:47)
[2018-09-27] MEDS: PHENYTOIN ER 100 MG CAP PO SCH (21:48)
[2018-09-28] MEDS: HYDROCODONE/APAP 7.5/325 MG TAB PO PRN ×2 (00:16→21:21)
[2018-09-28 06:16] LABS: Hematocrit 31.2 % (39.6-49.0)
[2018-09-28] MEDS: INSULIN -REGULAR HUMAN 50 UNIT/0.5 ML ML SQ SCH ×4 (07:30→21:00)
[2018-09-28] MEDS: EZETIMIBE 10 MG TAB PO SCH (09:52)
[2018-09-28] MEDS: PANTOPRAZOLE 40MG TABLET PO SCH (09:52)
[2018-09-28] MEDS: DOCUSATE NA 100 MG CAP PO SCH (09:52)
[2018-09-28] MEDS: CEFTRIAXONE/SWI 1gm 1 GM/10 ML SYR IV SCH (09:52)
[2018-09-28] MEDS: MONTELUKAST 10 MG TAB PO SCH (09:54)
[2018-09-28] MEDS: CARBIDOPA/LEVODOPA 25/100 TAB PO SCH ×4 (09:56→21:21)
--- NOTE | 2018-09-28 11:17 | P.PN ---
Date of Service: 09/27/18 (POD#2) S: PATIENT IN BED FINISHING EVENING MEAL, ORIENTED X 3, FOLLOWS INSTRUCTIONS DURING EXAM. O: AFEBRILE, VSS, HGB 10.5 THIS AM, WAS 11.8 YESTERDAY. BANDAGE CLEAN DRY AND INTACT. PATIENT DEMONSTRATES GOOD MOTION AND STRENGTH FOR RIGHT ANKLE AND FOOT. ONE ENCOUNTER WITH PT DOCUMENTED TODAY.STOOD FROM ELEVATED BED TWICE, 2 MIN. STANDING, THEN SIDE STEPS. MAXIMUM ASSIST TO STAND FROM SITTING. A: SLOW PROGRESS DAY 2 POST OP. FAMILY HAS INDICATED PATIENT UNLIKELY TO HANDLE 3 HOURS PER DAY OF PHYSICAL THERAPY. THEY HAVE SELECTED [facility] P: PATIENT AGAIN ENCOURAGED TO MAKE EFFORT TO PARTICIPATE. PARKINSONISM IS AN ISSUE. MOTIVATION IS VOCAL, NOT EVIDENT.
--- NOTE | 2018-09-28 12:32 | P.PN ---
Date of Service: 09/28/18 (POD#3) S: PATIENT IN BED INDICATES GOOD PT EFFORT THIS AM. ALSO LOOKING FOR DOG UNDER THE COVERS. FOLLOWS INSTRUCTIONS DURING EXAM AND MAKES REASONABLE CONVERSATIONAL RESPONSES, BUT FREQUENTLY BLOCKED, UNABLE TO FIND THE RIGHT WORD. O: AFEBRILE, VSS, HGB 10.6 THIS AM, WAS 11.5 YESTERDAY. BANDAGE CLEAN DRY AND INTACT. PATIENT DEMONSTRATES GOOD MOTION AND STRENGTH FOR RIGHT ANKLE AND FOOT. NO PT NOTES YET AVAILABLE FOR REVIEW TODAY. HELPED PATIENT GET ACCESS TO [facility] FOR LUNCH. A: POST OP DAY #3. [facility] APPLICATION PENDING. P: CONTINUE MOBILIZATION WOULD USE ANTICOAGULATION FOR 30 D POST OP, USUALLY XARELTO 10 MG P.O. DAILY IF CLEARED WITH DR. ZAPATA. PATIENT HAD BLOOD IN URINE POSSIBLY DUE TO BAER TRAUMA. CHANGE AQUACEL BANDAGE PRIOR TO DISCHARGE WITH ALCOHOL SWABS AND NEW AQUACEL BANDAGE. F/U MY OFFICE ~10D POST DISCHARGE.
--- NOTE | 2018-09-28 14:13 | P.PN ---
Subjective Date of Service: 09/28/18 Chief Complaint: Right hip fracture Subjective: Tolerating diet, Ambulating, Improving, Working w/ PT, Doing well, Other (Hematuria Resolved today. Denies Fever, Chills, SOB or CP at this time) Review of Systems 10-point ROS is otherwise unremarkable Physical Examination - Vital Signs Temperature: 98.5 F Blood Pressure: 141/68 Pulse: 84 Respirations: 18 Pulse Ox (%): 99 - Physical Exam General: Alert, In no apparent distress HEENT: Atraumatic, PERRLA, EOMI Neck: Supple, JVD not distended Respiratory: Clear to auscultation bilaterally, Normal air movement Cardiovascular: Regular rate/rhythm, Normal S1 S2 Gastrointestinal: Normal bowel sounds, No tenderness Musculoskeletal: No tenderness Integumentary: No rashes Neurological: Normal speech, Normal tone, Normal affect Lymphatics: No axilla or inguinal lymphadenopathy - Studies Medications List Reviewed: Yes Assessment And Plan - Current Problems (Diagnosis) (1) Hematuria Current Visit: Yes Status: Acute Plan: Gross Hematuria most likely 2.2 to UTI vs Trauma from Cancino Insertion. Now Resolved. -Urology consulted. Appreciated Reccs -S/P Bladder irrigation now Qualifiers: Hematuria type: gross Qualified Code(s): R31.0 - Gross hematuria (2) Hip fracture Onset Date: ~09/23/18 Current Visit: Yes Status: Acute Plan: Hip Fracture s.p Fall -Fall precautions. -orthopedics Consulted. Reccs Appreciated -S/p ORIF POD 3 -PT/OT consulted. -DVT ppx with lovenox 40mg BID Qualifiers: Encounter type: initial encounter Fracture type: closed Laterality: right Qualified Code(s): S72.001A - Fracture of unspecified part of neck of right femur, initial encounter for closed fracture (3) COPD (chronic obstructive pulmonary disease) Current Visit: Yes Status: Chronic Qualifiers: COPD type: emphysema Emphysema type: unspecified Qualified Code(s): J43.9 - Emphysema, unspecified (4) Diabetes mellitus Current Visit: Yes Status: Chronic Qualifiers: Diabetes mellitus type: type 2 Diabetes mellitus parts counterman insulin use: without parts counterman use Diabetes mellitus complication status: with unspecified complications Qualified Code(s): E11.8 - Type 2 diabetes mellitus with unspecified complications (5) HTN (hypertension) Current Visit: Yes Status: Chronic Qualifiers: Hypertension type: essential hypertension Qualified Code(s): I10 - Essential (primary) hypertension (6) Parkinson disease Current Visit: Yes Status: Chronic (7) Seizure disorder Current Visit: Yes Status: Chronic - Plan Pending Placement now to SNF for PT/OT. Started on Lovenox for DVT PPX post Hip surgery. no Xarelto or eliquis due to being on Dilantin Discharge Plan: Other Plan to discharge in: Greater than 2 days - Code Status/Comfort Care Code Status Assessed: Yes Critical Care: No
--- NOTE | 2018-09-28 16:40 | PN ---
Subjective: The patient is doing well. Objective: Urine is clear. Bladder ultrasound is negative. Plan: Discontinue Cancino catheter and continue management. Urology will be signing off at this point. Please feel free to reconsult prn. Thanks. TRENT Voice ID: [id number] Report ID: [id number] MTDD
[2018-09-28] MEDS: ENOXAPARIN 40 MG/0.4 ML SQ SCH ×2 (17:08→21:21)
[2018-09-28] MEDS: ROSUVASTATIN 10 MG TAB PO SCH (21:21)
[2018-09-28] MEDS: PHENYTOIN ER 100 MG CAP PO SCH (21:22)
[2018-09-28] MEDS: DONEPEZIL HCL 5 MG TAB PO SCH (21:22)
--- NOTE | 2018-09-28 21:30 | OP ---
Date of Procedure: 09/25/2018 Surgeon: Amaury Domínguez MD Belt Puncher: GODFREY Bartlett, who gave very necessary program services assistant services throughout this case. Preoperative Diagnosis: Closed, displaced right femoral neck fracture. Postoperative Diagnosis: Closed, displaced right femoral neck fracture. Primary Procedure: Insertion of unipolar cemented hemiarthroplasty for right hip fracture, femoral n eddi. Indication: This is a 78-year-old male who was walking in the dark and forgot about the 3 steps down at the end of the montes. He stepped off into the air and tumbled down those steps and suff ered a fracture of the right femoral neck. After discussion of risks and benefits with all questions answered, the patient and his family have elected to proceed with insertion of cemented unipolar rig ht hip prosthesis for his femoral neck displaced fracture. The patient was taken to surgery and had a [employer] [facility] size [address], and a 54 mm head ball with 12/14 taper neck at -[address] tapped i nto place. The stem had a centralizer size 10.5 mm and 2 batches of Simplex HV cement with gentamici n were placed in a cement gun for injection technique. Technique: The patient was taken to the operating room and given a general anesthesia with intubatio n while in his hospital bed. The patient was then moved to the operating table and moved on to his l eft side with bolsters applied to lumbar, abdominal, and pubic ramus areas to maintain the left later al position. The right lower extremity was placed in traction to an IV stand and the Betadine scrub and prep were applied from ribcage to ankle. DuraPrep stick was used for prepping the ankle and foot . Sterile U-drapes and appropriate drapes were applied. Gloves were changed. Then the incision was drawn on the proximal femoral area curving toward the posterior superior iliac spine for the posteri or approach. IO band sticky drape was then applied. The incision was made through skin and subcutan eous tissue sharply with Bovie coagulation. Then, the cutting Bovie was used to incise the fascia la ta, which was divided in the lower 2/3 of the incision with the upper portion using sharp and blunt d issection for the gluteus norma muscle. Self-retaining retainers were placed in position to mainta in separation for the fascia william incision and the gluteus norma incision. With that exposure, the gemelli external rotators were taken down and tagged, as was the upper portion of the quadratus musc le. The capsular incision was carried from the posterior femur superiorly to reach the piriformis an d then the angle of the capsular incision was changed 90 degrees to progress towards the acetabular r im superiorly. The capsule was also tagged for repair as was the piriformis. The exposed fracture w as in the midportion of the cervical neck, quite angulated and jammed, and the oscillating saw was us ed along with the calcar cutting guide to make an appropriate cut for the calcar at its base. Then t he rongeur was used to remove shards of calcar to free up motion for the femoral head. The femoral h ead was skewered with the corkscrew instrument. Once it was spinning, the scoop was placed behind th e femoral head and leverage allowed its removal. The femoral head was then measured at 54 mm in diam eter. The femoral trial of that size was a good fit. The calcar retractor was placed underneath the proximal femur and preparation of the femur was initiated with the initiator on T-handle, followed b y the canal finder and then the lateralizer was used to make the appropriate alignment available for insertion of the stem. Reamers were used, 1, 2, 3, 4, and 5. The broaches were then utilized tappin g them in place in the same sequence. The size [address] was used for trialing and the -3 mm neck was chosen along with the 54 mm head ball. This trial reduction was quite stable. The hip was then re-dislocated and trial components were removed. An intramedullary plug was placed at the appr opriate depth in the intramedullary canal and Simpulse lavage was carried out followed by drying with suction and then a wick inserted into the intramedullary canal. Cement was mixed in a cement gun us ing 2 batches of Simplex HV cement with gentamicin. Injection technique was utilized to instill ceme nt, which was pressurized with the cement gun, and then the stem was tapped into position and held th ere during 18 minutes of setting for the cement. The 54 mm head ball and -3 mm taper were assembled and tapped into position, and reduction was successful. The hip was then assessed and found to be qu ite stable even with flexion greater than 90 degrees with extreme internal rotation. Range of motion was quite adequate. Simpulse lavage was utilized in the depths of the incision and then closure was initiated with #1 Vicryl interrupted sutures repairing the posterior capsule. The piriformis insert ion was made through the gluteus insertion on the greater trochanter posteriorly. External rotators were secured to the vastus lateralis posterior margin with interrupted sutures of #1 Vicryl. The jc dratus was also repaired to the posterior border of the vastus lateralis. Irrigation was carried out again, and then the fascia william closure was initiated distally progressing proximally to include the gluteus norma fascial component with interrupted #1 Vicryl sutures. Again, Simpulse lavage was ca rried out and closure of deep subcutaneous tissue was with interrupted #1 Vicryl with superficial sub cutaneous closure using 2-0 Vicryl accomplished. Skin best were used for skin closure and an Aqua spenser bandage was applied after the incision was injected with 30 mL of 0.25% Marcaine with epinephrine . Estimated blood loss was 250 mL. The patient was taken to the recovery room having tolerated this procedure well. KYLE/SAMMI Voice ID: [id number] Report ID: [id number]
[2018-09-28] MEDS: TEMAZEPAM 15 MG CAP PO PRN (23:55)
[2018-09-29] MEDS: PANTOPRAZOLE 40MG TABLET PO SCH (05:30)
[2018-09-29 06:21] LABS: Hematocrit 35.8 % (39.6-49.0)
[2018-09-29] MEDS: INSULIN -REGULAR HUMAN 50 UNIT/0.5 ML ML SQ SCH ×4 (07:30→21:00)
[2018-09-29] MEDS: CARBIDOPA/LEVODOPA 25/100 TAB PO SCH ×4 (10:23→20:50)
[2018-09-29] MEDS: MONTELUKAST 10 MG TAB PO SCH (10:23)
[2018-09-29] MEDS: EZETIMIBE 10 MG TAB PO SCH (10:23)
[2018-09-29] MEDS: DOCUSATE NA 100 MG CAP PO SCH (10:23)
[2018-09-29] MEDS: ENOXAPARIN 40 MG/0.4 ML SQ SCH (10:23)
[2018-09-29] MEDS: HYDROCODONE/APAP 7.5/325 MG TAB PO PRN (10:42)
[2018-09-29] MEDS ORDERED: IPRATROPIUM BROM 0.5MG/2.5ML NEB PRN (12:31)
[2018-09-29] MEDS ORDERED: LEVALBUTEROL 0.63 MG/3 ML NEB NEB PRN (12:31)
--- NOTE | 2018-09-29 12:31 | P.PN ---
Subjective Date of Service: 09/29/18 Chief Complaint: Right hip fracture Subjective: Tolerating diet, Improving, C/O voiced (Increased of Coughing, and weakness today.), Working w/ PT, Demented Review of Systems 10-point ROS is otherwise unremarkable Physical Examination - Vital Signs Temperature: 98.4 F Blood Pressure: 147/71 Pulse: 85 Respirations: 18 Pulse Ox (%): 97 - Physical Exam General: Alert, Mild distress Neck: JVD distended Respiratory: Normal air movement, Expiratory wheezes, Inspiratory wheezes Cardiovascular: Regular rate/rhythm, Normal S1 S2 Gastrointestinal: Normal bowel sounds, No tenderness Musculoskeletal: No tenderness Integumentary: No rashes Neurological: Normal speech, Normal tone, Normal affect Lymphatics: No axilla or inguinal lymphadenopathy - Studies Medications List Reviewed: Yes Assessment And Plan - Current Problems (Diagnosis) (1) Hematuria Current Visit: Yes Status: Resolved Plan: Gross Hematuria most likely 2.2 to UTI vs Trauma from Cancino Insertion. Now Resolved. -Urology consulted. Appreciated Reccs -S/P Bladder irrigation now -urine Culture negative - DC abx now Qualifiers: Hematuria type: gross Qualified Code(s): R31.0 - Gross hematuria (2) Hip fracture Onset Date: ~09/23/18 Current Visit: Yes Status: Acute Plan: Hip Fracture s.p Fall -Fall precautions. -orthopedics Consulted. Reccs Appreciated -S/p ORIF POD 4 -PT/OT consulted. -DVT ppx with lovenox 40mg BID Qualifiers: Encounter type: initial encounter Fracture type: closed Laterality: right Qualified Code(s): S72.001A - Fracture of unspecified part of neck of right femur, initial encounter for closed fracture (3) COPD (chronic obstructive pulmonary disease) Current Visit: Yes Status: Chronic Qualifiers: COPD type: emphysema Emphysema type: unspecified Qualified Code(s): J43.9 - Emphysema, unspecified (4) Diabetes mellitus Current Visit: Yes Status: Chronic Qualifiers: Diabetes mellitus type: type 2 Diabetes mellitus fci insulin use: without fci use Diabetes mellitus complication status: with unspecified complications Qualified Code(s): E11.8 - Type 2 diabetes mellitus with unspecified complications (5) HTN (hypertension) Current Visit: Yes Status: Chronic Qualifiers: Hypertension type: essential hypertension Qualified Code(s): I10 - Essential (primary) hypertension (6) Parkinson disease Current Visit: Yes Status: Chronic (7) Seizure disorder Current Visit: Yes Status: Chronic - Plan Pending Placement now to SNF for PT/OT. Started on Lovenox for DVT PPX post Hip surgery. no Xarelto or eliquis due to being on Dilantin. DC abx urine culture negative. Discharge Plan: Other Plan to discharge in: Greater than 2 days - Code Status/Comfort Care Code Status Assessed: Yes Critical Care: No
[2018-09-29] MEDS: CEFTRIAXONE/SWI 1gm 1 GM/10 ML SYR IV SCH (12:38)
--- NOTE | 2018-09-29 19:16 | RAD REPORT ---
EXAM DESCRIPTION: Rubi Single View09/29/2018 7:09 pm CLINICAL HISTORY: Chest pain COMPARISON: September 23, 2018 FINDINGS: The lungs are hyperaerated. The lungs appear clear of acute infiltrate. The heart is norm al size IMPRESSION: No acute abnormalities displayed
[2018-09-29] MEDS: ROSUVASTATIN 10 MG TAB PO SCH (20:50)
[2018-09-29] MEDS: DONEPEZIL HCL 5 MG TAB PO SCH (20:51)
[2018-09-29] MEDS: PHENYTOIN ER 100 MG CAP PO SCH (20:51)
[2018-09-30] MEDS: HYDROCODONE/APAP 7.5/325 MG TAB PO PRN ×2 (03:25→09:39)
[2018-09-30] MEDS: PANTOPRAZOLE 40MG TABLET PO SCH (05:32)
[2018-09-30 06:01] LABS: Absolute Lymphocytes (CBC) 0.7 K/uL (0.7-4.9); Absolute Monocytes 0.9 K/uL (0.1-1.3); Basophils % 0.6 % (0-1.3); Eosinophils % 0.9 % (0-4.4); Hematocrit 34.2 % (39.6-49.0); Lymphocytes % 5.3 % (15.3-44.8); MPV 7.5 fL (7.6-11.3); Monocytes % 6.2 % (3.3-12.3); RBC Red Blood Cell Count 3.94 M/uL (4.33-5.43)
[2018-09-30 06:19] LABS: ALT/SGPT 10 U/L (12-78); AST/SGOT 18 U/L (15-37); Albumin 2.5 g/dL (3.4-5.0); Alkaline Phosphatase 98 U/L (45-117); BUN Blood Urea Nitrogen 16 mg/dL (7-18); Bicarbonate 27 mmol/L (21-32); Bilirubin Total 0.9 mg/dL (0.2-1.0); Glucose Level 121 mg/dL (74-106); Potassium 3.5 mmol/L (3.5-5.1); Protein, Total 6.1 g/dL (6.4-8.2); Sodium Level 137 mmol/L (136-145)
[2018-09-30 07:02] LABS: Blood Morphology Comment NOT SEEN (NOT SEEN); Platelet Estimate ADEQ
[2018-09-30] MEDS: INSULIN -REGULAR HUMAN 50 UNIT/0.5 ML ML SQ SCH ×4 (07:30→21:00)
[2018-09-30] MEDS: DOCUSATE NA 100 MG CAP PO SCH (09:38)
[2018-09-30] MEDS: EZETIMIBE 10 MG TAB PO SCH (09:38)
[2018-09-30] MEDS: MONTELUKAST 10 MG TAB PO SCH (09:38)
[2018-09-30] MEDS: CEFTRIAXONE/SWI 1gm 1 GM/10 ML SYR IV SCH (09:39)
[2018-09-30] MEDS: CARBIDOPA/LEVODOPA 25/100 TAB PO SCH ×4 (09:39→21:41)
--- NOTE | 2018-09-30 11:17 | P.PN ---
Subjective Date of Service: 09/30/18 Chief Complaint: Right hip fracture Patient seen and examined at bedside with RN. Chart reviewed. This morning patient is much better than before. No more troubling her stridor heard. Patient did however have hematuria yesterday after starting of Lovenox. Lovenox held. Patient with Cancino catheter now. Planning for cystoscopy tomorrow. Review of Systems 10-point ROS is otherwise unremarkable Physical Examination - Vital Signs Temperature: 97.3 F Blood Pressure: 113/50 Pulse: 75 Respirations: 18 Pulse Ox (%): 98 - Physical Exam General: Alert, In no apparent distress Respiratory: Normal air movement, Expiratory wheezes, Inspiratory wheezes Cardiovascular: Regular rate/rhythm, Normal S1 S2 Gastrointestinal: Normal bowel sounds, No tenderness Musculoskeletal: No tenderness Integumentary: No rashes Neurological: Normal speech, Normal tone, Normal affect Lymphatics: No axilla or inguinal lymphadenopathy Urinary: Cancino catheter - Studies Medications List Reviewed: Yes Assessment And Plan - Current Problems (Diagnosis) (1) Hematuria Current Visit: Yes Status: Resolved Plan: Gross Hematuria most likely 2.2 to UTI vs structural abnormality. Restarted after Lovenox -Urology consulted. Appreciated Reccs -patient is planned for cystoscopy tomorrow. -hold Lovenox at this time -NPO after midnight Qualifiers: Hematuria type: gross Qualified Code(s): R31.0 - Gross hematuria (2) Hip fracture Onset Date: ~09/23/18 Current Visit: Yes Status: Acute Plan: Hip Fracture s.p Fall -Fall precautions. -orthopedics Consulted. Reccs Appreciated -S/p ORIF POD 5 -PT/OT consulted. -DVT ppx with lovenox 40mg BID. Currently however on hold due to recent hematuria Qualifiers: Encounter type: initial encounter Fracture type: closed Laterality: right Qualified Code(s): S72.001A - Fracture of unspecified part of neck of right femur, initial encounter for closed fracture (3) COPD (chronic obstructive pulmonary disease) Current Visit: Yes Status: Chronic Plan: Duo nebs, steroids, oxygen at this time. Qualifiers: COPD type: emphysema Emphysema type: unspecified Qualified Code(s): J43.9 - Emphysema, unspecified (4) Diabetes mellitus Current Visit: Yes Status: Chronic Qualifiers: Diabetes mellitus type: type 2 Diabetes mellitus retirement insulin use: without petroleum terminal plant operator use Diabetes mellitus complication status: with unspecified complications Qualified Code(s): E11.8 - Type 2 diabetes mellitus with unspecified complications (5) HTN (hypertension) Current Visit: Yes Status: Chronic Qualifiers: Hypertension type: essential hypertension Qualified Code(s): I10 - Essential (primary) hypertension (6) Parkinson disease Current Visit: Yes Status: Chronic (7) Seizure disorder Current Visit: Yes Status: Chronic - Plan Pending clinical improvement at this time. Patient scheduled for cystoscopy with urology tomorrow for hematuria. Patient also pending Placement now o SNF for PT/OT. Hold Lovenox at this time due to recent hematuria no Xarelto or eliquis due to being on Dilantin. Will followup post procedure with urology Discharge Plan: Other Plan to discharge in: Greater than 2 days - Code Status/Comfort Care Code Status Assessed: Yes Critical Care: No
--- NOTE | 2018-09-30 15:36 | PN ---
Subjective: Patient is doing well this morning. He has some other gross hematuria yesterday, most likely due to the Lovenox. I have reviewed his kidney ultrasound and bladder ultrasound. No significant finding that would explain the bleeding. My assessment would be to do a flexible cystoscopy since patient already had hip pinned from surgery and I am not able to do a lithotomy position but a flexible cystoscopy would show me the penile urethra, prostate, and bladder to identify the source of the bleeding, which is most likely prostate. He said he has never had any previous prostate, bladder, or kidney troubles in the past. So, we will make him n.p.o. after midnight and schedule procedure approximately around mid day tomorrow. Thank you very much. TRENT Voice ID: [id number] Report ID: [id number] JANEEN
[2018-09-30] MEDS: ROSUVASTATIN 10 MG TAB PO SCH (21:40)
[2018-09-30] MEDS: PHENYTOIN ER 100 MG CAP PO SCH (21:40)
[2018-09-30] MEDS: DONEPEZIL HCL 5 MG TAB PO SCH (21:40)
[2018-09-30] MEDS: TEMAZEPAM 15 MG CAP PO PRN (21:41)
[2018-10-01] MEDS: PANTOPRAZOLE 40MG TABLET PO SCH (05:13)
[2018-10-01] MEDS: INSULIN -REGULAR HUMAN 50 UNIT/0.5 ML ML SQ SCH ×4 (07:30→21:00)
[2018-10-01] MEDS: CARBIDOPA/LEVODOPA 25/100 TAB PO SCH ×4 (09:00→21:39)
[2018-10-01] MEDS: CEFTRIAXONE/SWI 1gm 1 GM/10 ML SYR IV SCH (09:22)
[2018-10-01] MEDS ORDERED: NA CHLORIDE 0.9% 1,000 ML ONE (12:05)
[2018-10-01] MEDS ORDERED: GENTAMICIN 100 MG/100 ML BAG 100 ML IV ONE (13:11)
[2018-10-01] MEDS ORDERED: PROPOFOL 200 MG/20 ML VIAL IV ONE (13:24)
[2018-10-01] MEDS ORDERED: LIDOCAINE 2% MPF 5 ML VIAL ONE (13:24)
[2018-10-01] MEDS ORDERED: FENTANYL CITR 100 MCG/2 ML ONE (13:36)
[2018-10-01] MEDS: HYDROCODONE/APAP 7.5/325 MG TAB PO PRN (14:54)
[2018-10-01] MEDS: EZETIMIBE 10 MG TAB PO SCH (14:55)
[2018-10-01] MEDS: MONTELUKAST 10 MG TAB PO SCH (14:55)
[2018-10-01] MEDS: DOCUSATE NA 100 MG CAP PO SCH (14:56)
--- NOTE | 2018-10-01 16:26 | P.PN ---
Subjective Date of Service: 10/01/18 Primary Care Provider: unknown Chief Complaint: Right hip fracture Subjective: Doing well Physical Examination - Vital Signs Temperature: 98.2 F Blood Pressure: 142/68 Pulse: 83 Respirations: 16 Pulse Ox (%): 99 - Physical Exam General: Alert, In no apparent distress, Cooperative HEENT: Atraumatic Neck: Supple Respiratory: Clear to auscultation bilaterally, Normal air movement Cardiovascular: Normal pulses, Regular rate/rhythm Gastrointestinal: Normal bowel sounds, Soft and benign, Non-distended Integumentary: No erythema, No warmth, No cyanosis - Studies Medications List Reviewed: Yes Assessment & Plan Discharge Plan: Other (alf facility) Plan to discharge in: 24 Hours Physician Review Additional Text: Impression: Gross hematuria likely related to UTI vs urological etiology Hip fracture status post fall status post open reduction internal fixation, postop day 6 COPD Diabetes mellitus type 2 Hypertension Parkinson's Seizure disorder Dementia Plan: Gross hematuria likely related to UTI vs urological etiology: Patient seen and evaluated by urology. Patient to have cystoscopy. Await further recommendation. Continue IV antibiotic therapy. So far urine culture negative. Will address with urology. Anticipate skilled placement. Will discuss with social insurance specialist. Hip fracture status post fall status post open reduction internal fixation, postop day 6: Continue physical therapy. Patient will require skilled placement. Continue to hold DVT prophylaxis. Will discuss with urology when to restart.. Will adjust per renal function. COPD: Maintain sats above 90%. Continue medication. Diabetes mellitus type 2: Continue Accu-Cheks. Will monitor closely. Hypertension: Continue medication. Will monitor closely. Parkinson's: Continue medication. Will monitor for fall. Seizure disorder: Continue medication. Dementia: Continue with medication. Time Spent Managing Pts Care (In Minutes): 55
[2018-10-01] MEDS: DONEPEZIL HCL 5 MG TAB PO SCH (21:38)
[2018-10-01] MEDS: TEMAZEPAM 15 MG CAP PO PRN (21:39)
[2018-10-01] MEDS: PHENYTOIN ER 100 MG CAP PO SCH (21:39)
[2018-10-01] MEDS: ROSUVASTATIN 10 MG TAB PO SCH (21:39)
--- NOTE | 2018-10-02 00:43 | OP ---
Surgeon: Regina Goodman MD Preoperative Diagnosis: History of gross hematuria, status post hip replacement. Postoperative Diagnosis: History of gross hematuria, status post hip replacement. Procedure Performed: Diagnostic cystoscopy. Findings: Erythematous sore spot like an excoriation on the left side of the penile bulbar urethra from traumatic gage removal few nights ago, had a clot attached to it. No signs of tumor or any growth there. Prostatic urethra was obstructive from BPH. Bladder had a diverticulum at the posterior wall, otherwise within normal limits home. Indication For Procedure: A 78-year-old gentleman, who has been having a history of gross hematuria intermittently. He is on blood thinners while in the hospital, status post hip replacement. He had a renal ultrasound and bladder ultrasound, did not find any significant findings. He was given all general information, alternatives, and risks because the daughter was insistent that we further diagnose why he is bleeding. Next, he have a flexible cystoscopy since we were unable to do cystoscopy in lithotomy position due to his hip surgery. Proper informed consent was obtained. Description Of Procedure: He was taken to the operative room and placed in a supine position. The area was prepped and draped. We inserted a flexible cystoscope per urethra into the bladder. At first, there was no clot in the urethra. No bleeding seen in the urethra, but once scope went past this area, it became irritated and one could see the clot was formed. The prostatic urethra appeared obstructive approximately 3 cm in length. There was no obstructive median lobe. Bladder appears slightly trabeculated, grade 1 to 2/4 , small diverticulum of the posterior bladder wall. The rest of the bladder showed no tumors, no stones and no hematuria within the bladder. We retroflexed the scope looking backwards towards the prostate. There was no significant protrusion. Normal orifices. The scope was then removed slowly and taking pictures of the excoriated area on the left side, we are seeing picture #4. An image #1 was diverticulum. An image #2 was the bladder, some irritation due to Gage balloon most likely. Image #3 showed prostatic urethra and image #4 showed the urethra we are concerned about. We then placed a 22- Chinese regular 3-way hematuria catheter in the bladder for CBI irrigation. We can leave this while he was on the Lovenox and he hopefully tamponade the area of the urethra to allow it to heal. I will give it about 7 days to heal. LORENA/SAMMI Voice ID: [id number] Report ID: [id number] MTDD
[2018-10-02] MEDS ORDERED: TRAZODONE 50 MG TABLET PO ONE (01:31)
[2018-10-02 04:17] LABS: Absolute Lymphocytes (CBC) 0.9 K/uL (0.7-4.9); Absolute Monocytes 0.9 K/uL (0.1-1.3); Absolute Neutrophil 7.8 K/uL (1.8-8.0); Basophils % 0.5 % (0-1.3); Eosinophils % 6.1 % (0-4.4); Hematocrit 30.5 % (39.6-49.0); Lymphocytes % 8.5 % (15.3-44.8); MPV 7.3 fL (7.6-11.3); Monocytes % 8.4 % (3.3-12.3); RBC Red Blood Cell Count 3.53 M/uL (4.33-5.43)
[2018-10-02] MEDS: PANTOPRAZOLE 40MG TABLET PO SCH (05:50)
[2018-10-02] MEDS: INSULIN -REGULAR HUMAN 50 UNIT/0.5 ML ML SQ SCH ×4 (07:30→20:34)
[2018-10-02] MEDS: MONTELUKAST 10 MG TAB PO SCH (09:17)
[2018-10-02] MEDS: CARBIDOPA/LEVODOPA 25/100 TAB PO SCH ×4 (09:17→21:59)
[2018-10-02] MEDS: EZETIMIBE 10 MG TAB PO SCH (09:17)
[2018-10-02] MEDS: DOCUSATE NA 100 MG CAP PO SCH (09:17)
[2018-10-02] MEDS: HYDROCODONE/APAP 7.5/325 MG TAB PO PRN ×2 (12:10→21:59)
[2018-10-02] MEDS: CEFTRIAXONE/SWI 1gm 1 GM/10 ML SYR IV SCH (12:10)
--- NOTE | 2018-10-02 14:01 | P.PN ---
Subjective Date of Service: 10/02/18 Primary Care Provider: unknown Chief Complaint: Right hip fracture Subjective: Doing well Physical Examination - Vital Signs Temperature: 98.2 F Blood Pressure: 141/64 Pulse: 76 Respirations: 20 Pulse Ox (%): 98 - Physical Exam General: Alert, In no apparent distress HEENT: Atraumatic Neck: Supple Respiratory: Clear to auscultation bilaterally, Normal air movement Cardiovascular: Normal pulses, Regular rate/rhythm Gastrointestinal: Normal bowel sounds, Soft and benign, Non-distended Neurological: Normal speech, Normal strength at 5/5 x4 extr, Normal tone Urinary: Cancino catheter - Studies Medications List Reviewed: Yes Assessment & Plan Discharge Plan: Other (care home facility) Plan to discharge in: 24 Hours Physician Review Additional Text: Impression: Gross hematuria related to excoriation on the left penile bulbar urethral area likely from traumatic Cancino removal Hip fracture status post fall status post open reduction internal fixation, postop day 7 COPD Diabetes mellitus type 2 Hypertension Parkinson's Seizure disorder Dementia Plan: Gross hematuria related to excoriation on the left penile bulbar urethral area likely from traumatic Cancino removal: Patient seen and evaluated by urology. Patient cystoscopy yesterday with Cancino catheter placement. An area of excoriation on the left penile bulbar urethral area noted. This is likely from traumatic Cancino removal couple a days prior. No further bleeding noted. Will restart DVT prophylaxis-Lovenox. Will discuss with urology about future plan of care.. Await further recommendation. Will discontinue IV antibiotic therapy Hip fracture status post fall status post open reduction internal fixation, postop day 7: Continue physical therapy. Patient will require skilled placement. Will restart DVT prophylaxis COPD: Maintain sats above 90%. Will wean off oxygen. Continue incentive spirometer. Continue medication. Diabetes mellitus type 2: Continue Accu-Cheks and insulin sliding scale. Will monitor closely. Hypertension: Continue medication. Will monitor closely. Overall stable. Parkinson's: Continue medication. Will monitor for fall. Overall stable. Seizure disorder: Continue medication. Dementia: Continue with medication. Time Spent Managing Pts Care (In Minutes): 55
--- NOTE | 2018-10-02 15:31 | PN ---
Subjective: Patient feels well, doing well. Objective: Vital Signs: 98.3, 72, 20, 134/58, 97% sat. Physical exam unchanged. Urine is clear. No bleeding. He put out 750 cc recorded last night. CBI is hanging with the 3-way catheter in place from OR. Lab Data: Shows white count down to 10.2, H and H 10 and 30.5, platelets 477. Chemistry shows glucose 156. Assessment: Cancino trauma, urethral trauma on the left side, left inner bulbar urethra. Cancino catheter is in place for 7 days. Urine cultures only show mixed qasim so far. So we will continue with medical mangement. LORENA/SAMMI Voice ID: [id number] Report ID: [id number] MTDD
--- NOTE | 2018-10-02 16:02 | RAD REPORT ---
EXAM DESCRIPTION: RAD - Barium Swallow Modified - 10/02/2018 3:57 pm CLINICAL HISTORY: R/O Aspiration Dysphagia, suspected aspiration COMPARISON: Renal Ultrasound-Complete dated 09/27/2018 TECHNIQUE: The patient was given liquid, semi-solid and solid forms of barium. Lateral view fluorosc opic imaging was performed in conjunction with speech pathology service. FINDINGS: Laryngeal penetration: not cleared with thin by cup Aspiration: no cough with thin by straw Pharyngeal residue: mod-severe vallecular, moderate pyriform Delayed swallow onset (1-3 sec) chin tuck and sour bolus not effective. Total fluoroscopy time: 2 minutes and 13 seconds
--- NOTE | 2018-10-02 16:38 | P.PN ---
Date of Service: 10/02/18 (POD#7) S: MISSED PATIENT YESTERDAY HE WAS DOWN STAIRS IN SURGERY FOR CYSTOSCOPY. TODAY THE PATIENT IS SITTING IN HIS BEDSIDE CHAIR, RESPONSIVE AND IN GOOD SPIRITS. HE EXPRESSES CONCERN OVER HIS CONFUSION OVER THE PAST FEW DAYS. HE IS VERY AWARE OF THE DIFFICULTIES HE HAS HAD WITH SPEECH AND CONFUSION. O: AFEBRILE, VSS, HGB 10.4 THIS AM, WAS 11.5 YESTERDAY. WBC 10.2, N76.5%. BANDAGE CLEAN DRY AND INTACT. PATIENT DEMONSTRATES GOOD MOTION AND STRENGTH FOR RIGHT ANKLE AND FOOT. 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 PT NOTES AVAILABLE FOR REVIEW TODAY INDICATE 8 FEET TRAVELED WITH FRONT WHEELED ROLLING WALKER WITH MAXIMUM ASSIST WAS FOLLOWED BY GOING 50 FEET WITH MAXIMUM ASSIST WANING TO MINIMUM ASSIST BY COMPLETION OF THE DISTANCE. A: POST OP DAY #7. SNF MAY BE AVAILABLE EARLY TOMORROW. P: CONTINUE MOBILIZATION. TRANSFERS AND WEIGHTBEARING TOLERATED RIGHT LOWER EXTREMITY, AAROM & PROM. WOULD USE ANTICOAGULATION FOR 30 D POST OP IF POSSIBLE. PATIENT HAD BAER TRAUMA AND BAER WAS INSERTED FOR COMPRESSION OF THE ABRADED AREA AT THE END OF YESTERDAY'S PROCEDURE TO BE LEFT IN PLACE FOR 7D. CHANGE AQUACEL BANDAGE PRIOR TO DISCHARGE WITH ALCOHOL SWABS AND NEW AQUACEL BANDAGE. F/U MY OFFICE ~1 WEEK POST DISCHARGE FOR REMOVAL OF RODRIGO WITH APPLICATION OF NEW AQUACEL BANDAGE.
[2018-10-02] MEDS ORDERED: ENOXAPARIN 30 MG/0.3 ML SQ SCH (17:00)
[2018-10-02] MEDS: ROSUVASTATIN 10 MG TAB PO SCH (21:59)
[2018-10-02] MEDS: DONEPEZIL HCL 5 MG TAB PO SCH (21:59)
[2018-10-02] MEDS: PHENYTOIN ER 100 MG CAP PO SCH (22:00)
--- NOTE | 2018-10-03 03:18 | OP ---
Date of Procedure: 09/25/2018 Surgeon: Amaury Domínguez MD Tip Printer: GODFREY Bartlett, who gave very necessary assistant professor of art services throughout this procedur e. Preoperative Diagnosis: Closed, displaced right femoral neck fracture. Postoperative Diagnosis: Closed, displaced right femoral neck fracture. Primary Procedure: Insertion of unipolar cemented hemiarthroplasty for right femoral neck fracture. Indications: This 78-year-old male was walking in the dark and forgot about 3 steps at the end of the montes to step off into the air and tumbled down those steps. He denied dizziness and loss of consciousness and was brought to the emergency department at [facility] where x-ra ys have shown a displaced femoral neck fracture of the right proximal femur. The patient has been cl eared for surgery and after discussion of risks and benefits with all questions answered, he has elec ridge to proceed with insertion of cemented unipolar hemiarthroplasty. The patient was taken to the op erating room and given a general anesthesia with intubation. He was then moved to the operative tabl e and placed in the left lateral position with bolsters for the lumbar spine. The abdomen and the pu bic ramus to maintain his position. Traction was placed at the right ankle and prepping was carried out with Betadine scrub and paint from the ribcage to the ankle and DuraPrep stick used for prep of t he ankle and foot. An impervious stockinette was applied and secured with Coban to just above the kn ee. The rest of the operative field was draped out to maintain mobility and circumferential access t o the right thigh and hip area. The incision was drawn and then IO band sticky drape was applied ove r the operative area and sealed off the edges of the sterile sheets. The incision was made sharply t hrough skin and subcutaneous tissue down to the fascia william. Then Bovie coagulation was used to stop bleeders and Bovie cutting was used to incise the fascia william and divided proximally to the gluteus norma, which was divided sharply and bluntly with finger pressure. Self retainers were placed on t he fascia william and gluteus norma layers, and with fat exposure, the cutting Bovie was utilized to t lencho down the posterior aspect of the proximal femur attachments of the external rotators and quadratu s for the superior aspect to expose the femoral neck, which had been broken and impaled to a degree w ith the adjacent fragment. The rongeur was used to remove shards of the calcar and gain access with retractors to allow the calcar cutting guide to toña and then used the oscillating saw to cut the tita ropriate calcar incision. Fragments of calcar were removed and then the corkscrew was inserted into the femoral head. Once control was gained, a skid was slipped under it and that allowed leverage to remove the femoral head, which was measured at 54 mm in diameter. The femoral trial 54 mm in diamete r was a good fit and attention was turned then to preparation of the proximal femur. The dry box tender was utilized followed by the initiator and canal finder and then the lateralizer. At that point, angus mers size 1 through 4 were utilized and then broaches 1 through 4 were utilized before sank a little bit in the femoral neck, and the 5 was used after the 5 broach was tapped into position for trialing. Trialing off the 5 caused selection of the -3 mm neck and then after reduction using the 54 mm head ball. This was accepted as quite stable with full flexion and internal rotation giving no indicatio n of dislocation. The pistoning revealed a good reduction and aligning leg length measurement was fe lt to be equal. Then all trial components were removed and intramedullary plug was placed in the fem ur, then Simpulse lavage bottle brush and dry sponge were used in sequence while cement was being mix ed with 2 batches of simplex HV with gentamicin mixed in a cement gun for pressurized technique. The pressurized technique was utilized with the size 5 stem slipped into position and held there for 18 minutes while the cement set. There were no problems noted by anesthesia and the -3 neck and a 54 mm head ball were tapped into position and following reduction again, the range of motion was quite goo d and there was good stability for pistoning and flexion of the hip with internal rotation. Then, Si mpulse lavage was utilized around the reduced femoral head and the posterior capsule and piriformis t endon were repaired using #1 Vicryl interrupted sutures. The external rotators and quadratus were re paired to the posterior margin of the vastus lateralis fascia with interrupted sutures of #1 Vicryl a nd the fascia william was repaired with interrupted #1 Vicryl sutures reaching the fascia of the gluteus norma, it was also repaired with interrupted sutures. Then, the deep subcu was closed with interr upted sutures of #1 Vicryl and 2-0 Vicryl was used for the superficial subcutaneous closure. Skin st aples were used for the final skin closure. The incision was injected with 30 mL of 0.25% Marcaine w ith epinephrine. The incision was then covered with an Aquacel bandage. The patient was moved to [facility] bed and taken to the recovery room having tolerated this procedure well. Estimated blood loss was 250 mL. The femoral head and calcar shards and soft-tissue debrided were sent to pathology. The pat ient had a urinary catheter inserted just prior to surgery. He also had 1 g of Ancef given 30 minute s prior to the incision with tranexamic acid 1 g given at the time of the incision, another 1 g was g iven at the time of initiating closure. KYLE/SAMMI Voice ID: [id number] Report ID: [id number]
[2018-10-03 04:24] LABS: Absolute Lymphocytes (CBC) 1.2 K/uL (0.7-4.9); Absolute Monocytes 0.8 K/uL (0.1-1.3); Absolute Neutrophil 5.3 K/uL (1.8-8.0); Basophils % 1.2 % (0-1.3); Eosinophils % 9.2 % (0-4.4); Hematocrit 30.2 % (39.6-49.0); Lymphocytes % 15.2 % (15.3-44.8); MPV 7.3 fL (7.6-11.3); Monocytes % 9.7 % (3.3-12.3)
[2018-10-03] MEDS: PANTOPRAZOLE 40MG TABLET PO SCH (06:51)
[2018-10-03] MEDS: INSULIN -REGULAR HUMAN 50 UNIT/0.5 ML ML SQ SCH ×2 (07:30→11:30)
[2018-10-03] MEDS: MONTELUKAST 10 MG TAB PO SCH (08:17)
[2018-10-03] MEDS: CARBIDOPA/LEVODOPA 25/100 TAB PO SCH (08:17)
[2018-10-03] MEDS: DOCUSATE NA 100 MG CAP PO SCH (08:17)
[2018-10-03] MEDS: EZETIMIBE 10 MG TAB PO SCH (08:20)
--- NOTE | 2018-10-03 10:27 | P.DS ---
Admission Date: 09/23/18 Discharge Date: 10/03/18 Primary Care Provider: unknown Disposition: TRANSFER TO SNF - REHAB Discharge Condition: GOOD Reason for Admission: Right hip fracture Consultations: Orthopedics-Dr. Domínguez Cardiology-Dr. David Urology-Dr. Goodman Speech therapy Procedures: Hip xray: Renal US: Bladder US: Surgery: Urological procedure: Medical Problem List: Hospital Course: Mild-moderate oral dysphagia characterized by decreased sensation, reduced bolus procurement and control resulting in premature spillage over BOT with pureed solids as well as lingual pumping/rocking with honey, pudding, and dry solids resulting in mildly prolonged oral transit time and delay in A-P transit. Moderate-severe pharyngeal dysphagia characterized by deep laryngeal penetration (to the folds and not cleared by reflexive cough or subsequent swallows likely to be aspirated by way of gravity) with thin by self- administered cup sip, GROSS silent aspiration of thin liquid barium AFTER the swallow due to pyriform sinus residuals falling into airway, decreased epiglottic inversion, delayed swallow response (~1-3s), and significant residue in valleculae and pyriform residues with all consistencies (worse with honey and pudding). Moderate esophageal stasis with regular dry solids, >30 seconds, not cleared with liquid wash. Patient is at a HIGH risk for aspiration and aspiration pneumonia/pneumonitis. Diet Recommendations: Regular solids, [place]-thickened liquids, Whole medications administered one at a time. Compensatory Strategies: Upright trunk positioning during all oral intake and for at least 45 minutes following due to esophageal stasis and reflux, slow rate , small bites, small sips, alternate bites/sips, multiple swallows, increased rest between presentations. Patient could benefit from 5-6 small meals per day as opposed to 3 moderate-large meals per day. Consults recommended: GI and outpatient or home health ST. Stimulability Testing Maneuvers/Strategies attempted: chin tuck, sour bolus, cough + re-swallow Results: ineffective in reducing aspiration. Results and recommendations were given to both patient and nurse verbally; both verbalized comprehension. Patient and family will require further education/ training by ST via outpatient or home health therapy. Initialized on 10/03/18 09:24 - END OF NOTE Vital Signs/Physical Exam: Temp Pulse Resp BP Pulse Ox 98.5 F 78 20 144/73 H 96 10/03/18 08:00 10/03/18 08:00 10/03/18 08:00 10/03/18 08:00 10/03/18 08:00 Laboratory Data at Discharge: WBC 8.1 K/uL (4.3-10.9) D 10/03/18 03:24 Hgb 10.3 g/dL (13.6-17.9) L 10/03/18 03:24 Hct 30.2 % (39.6-49.0) L 10/03/18 03:24 Plt Count 524 K/uL (152-406) H 10/03/18 03:24 PT 12.5 SECONDS (9.5-12.5) 09/23/18 21:48 INR 1.06 09/23/18 21:48 Sodium 137 mmol/L (136-145) 09/30/18 05:44 Potassium 3.5 mmol/L (3.5-5.1) 09/30/18 05:44 BUN 16 mg/dL (7-18) 09/30/18 05:44 Creatinine 0.68 mg/dL (0.55-1.3) 09/30/18 05:44 Glucose 121 mg/dL (74-106) H 09/30/18 05:44 Magnesium 2.0 mg/dL (1.8-2.4) 09/24/18 04:33 Total Bilirubin 0.9 mg/dL (0.2-1.0) 09/30/18 05:44 AST 18 U/L (15-37) 09/30/18 05:44 ALT 10 U/L (12-78) L 09/30/18 05:44 Alkaline Phosphatase 98 U/L (45-117) 09/30/18 05:44 Home Medications: Aspirin 81 mg PO DAILY 09/24/18 Carbidopa/Levodopa [Carbidopa-Levo 25-100 mg Odt] 2 tab PO QID 09/24/18 Docusate [Colace Cap] 100 mg PO DAILY 09/24/18 Donepezil HCl 10 mg PO DAILY 09/24/18 Ezetimibe [Zetia] 10 mg PO DAILY 09/24/18 Lisinopril [Prinivil] 10 mg PO DAILY 09/24/18 Montelukast [Singulair] 10 mg PO DAILY 09/24/18 PHENYTOIN ER Cap [Dilantin ER Cap] 4 cap PO BEDTIME 09/24/18 Rosuvastatin Calcium [Crestor] 20 mg PO BEDTIME 09/24/18
--- NOTE | 2018-10-03 10:33 | P.DS ---
Admission Date: 09/23/18 Discharge Date: 10/03/18 Primary Care Provider: unknown Disposition: TRANSFER TO SNF - REHAB Discharge Condition: GOOD Reason for Admission: Right hip fracture Consultations: Orthopedics-Dr. Domínguez Cardiology-Dr. David Urology-Dr. Goodman Speech therapy Procedures: Hip xray: FINDINGS: Subcapital fracture is present of the proximal right femur with varus angulation. No dislocation seen. CT head/Neck: IMPRESSION: 1. No acute intracranial findings. 2. Findings suggestive of a large left maxillary sinus mucus retention cyst versus polyp. 3. Moderate spondylosis of the cervical spine without acute findings. 4. Apparent enlargement of the uvula with concern for continuity with the ostiomeatal complex and the paranasal sinuses. This raises the possibility of an antrochoanal polyp. Renal US: COMPARISON: None. FINDINGS: The right kidney measures 12 cm with an increased echotexture. The left kidney measures 12 cm with an increased echotexture. 1 centimeter left renal cyst Hydronephrosis is not seen. IMPRESSION: Increased renal echotexture consistent with parenchymal disease Bladder US: FINDINGS: Prevoid bladder volume equals 61 cc Postvoid bladder volume equals 22 cc A Gage catheter is present within the bladder. No ascites seen IMPRESSION: Prevoid bladder volume equals 61 cc Postvoid bladder volume equals 22 cc Surgery: Date of Procedure: 09/25/2018 Surgeon: Amaury Domínguez MD Network Field Engineer: GODFREY Barteltt, who gave very necessary assistant track coach services throughout this procedure. Preoperative Diagnosis: Closed, displaced right femoral neck fracture. Postoperative Diagnosis: Closed, displaced right femoral neck fracture. Primary Procedure: Insertion of unipolar cemented hemiarthroplasty for right femoral neck fracture. Urological procedure: Surgeon: Regina Goodman MD Preoperative Diagnosis: History of gross hematuria, status post hip replacement. Postoperative Diagnosis: History of gross hematuria, status post hip replacement. Procedure Performed: Diagnostic cystoscopy. Findings: Erythematous sore spot like an excoriation on the left side of the penile bulbar urethra from traumatic gage removal few nights ago, had a clot attached to it. No signs of tumor or any growth there. Prostatic urethra was obstructive from BPH. Bladder had a diverticulum at the posterior wall, otherwise within normal limits home. Modified Barium Swallow: COMPARISON: Renal Ultrasound-Complete dated 09/27/2018 TECHNIQUE: The patient was given liquid, semi-solid and solid forms of barium. Lateral view fluoroscopic imaging was performed in conjunction with speech pathology service. FINDINGS: Laryngeal penetration: not cleared with thin by cup Aspiration: no cough with thin by straw Pharyngeal residue: mod-severe vallecular, moderate pyriform Delayed swallow onset (1-3 sec) chin tuck and sour bolus not effective. Total fluoroscopy time: 2 minutes and 13 seconds Medical Problem List: Gross hematuria related to excoriation on the left penile bulbar urethral area likely from Traumatic Gage removal Closed, displaced right femoral neck fracture status post mechanical fall postop insertion of unipolar cemented hemiarthroplasty COPD, chronic Diabetes mellitus type 2, diet controlled Hypertension Hyperlipidemia Parkinson's Seizure disorder Dementia Dysphagia Anemia likely of chronic disease Brief History of Present Illness: 78-year-old male presented to emergency room after a mechanical fall. Patient found to have left hip fracture. Patient was admitted for treatment. Hospital Course: Patient admitted for right hip fracture status post mechanical fall. Patient was seen and evaluated by orthopedics. Surgery recommended. Patient had insertion of unipolar cemented hemiarthroplasty. From orthopedic standpoint patient did well. Patient was accepted to go to skilled facility continue rehabilitation. At discharge patient will follow up with orthopedics within 1 week for staple removal. Patient will continue with tramadol 50 mg 1 pill twice daily as needed for pain. Patient will continue with Lovenox 30 mg subcu daily for DVT prophylaxis for at least 20 days[address] Fall precautions in place. Patient will continue with physical therapy. During the course of his stay patient had gross hematuria. Patient was seen and evaluated by urology. Cystoscopy was performed. Excoriation of the left penile bulbar urethral area was noted. This was likely from trauma from recent gage removal. Hematuria was controlled. Patient did well after cystoscopy. Urine culture negative for infection. At discharge patient will continue with Gage catheter for 1 more week. After that time Gage catheter can be removed. Recommend to follow up with urology within 1-2 weeks to follow up this hospitalization. Patient also had some dysphagia prior to discharge to skilled facility. Patient was seen and evaluated by speech therapy. Modified barium swallow performed. Patient found to have mild to moderate oral dysphagia, mild to severe pharyngeal dysphagia dietary recommendations included regular solids with nectar thickened liquids. Home medications to be administered one at a time is recommended. Compensatory strategies to be continued. Patient to remain upright during all oral intake and for at least 45 min after eating. Patient to continue with eating at a slower rate, small bites, small sips, alternate bites/sips, multiple swallows, and increased rest between presentations is recommended. Patient would benefit from 5-6 small meals a day instead of 3 large moderate meals. Patient to continue with speech therapy. Initial CT neck showed possible large uvula. Evaluation by ENT as an outpatient is recommended. Further recommendation is to follow up with ENT and/ or GI for further recommendation. Patient with underlying Parkinson's. This has remained stable. At discharge he will continue with carbidopa levodopa 25/100 mg 2 pills 4 times a day. Recommend follow up with neurology as an outpatient. Patient with underlying seizure disorder. At discharge he will continue with Dilantin ER 100 mg 4 pills at bedtime. Recommend follow up with neurology as an outpatient. Patient with dementia. Patient will continue with Aricept 10 mg daily. Recommend to follow up with neurology as directed. Patient with hypertension. At discharge he will continue with lisinopril 10 mg 1 pill daily. Recommend to maintain blood pressures less 150/80. Further adjustment can be done by his PCP. Patient with hyperlipidemia. At discharge he will continue with Zetia 10 mg daily and Crestor 20 mg daily. Patient with history of diabetes. This appears to be diet controlled. Continue to monitor blood sugars. Recommend to maintain blood sugars less 140 fasting and less than 200 after meals. Further evaluation and monitoring can be done by his PCP. Patient likely with underlying anemia of chronic disease. This remained stable postoperatively and with recent gross hematuria. Recommend to follow up with lab-CBC in 1-2 weeks to monitor stability. Vital Signs/Physical Exam: Temp Pulse Resp BP Pulse Ox 98.5 F 78 20 144/73 H 96 10/03/18 08:00 10/03/18 08:00 10/03/18 08:00 10/03/18 08:00 10/03/18 08:00 General: Alert, Demented HEENT: Atraumatic Neck: Supple Respiratory: Clear to auscultation bilaterally, Normal air movement Cardiovascular: Normal pulses, Regular rate/rhythm Gastrointestinal: Normal bowel sounds, Soft and benign, Non-distended Musculoskeletal: No erythema, No tenderness, No warmth Integumentary: No erythema, No warmth, No cyanosis Neurological: Normal speech, Normal strength at 5/5 x4 extr, Normal tone, Dementia Laboratory Data at Discharge: WBC 8.1 K/uL (4.3-10.9) D 10/03/18 03:24 Hgb 10.3 g/dL (13.6-17.9) L 10/03/18 03:24 Hct 30.2 % (39.6-49.0) L 10/03/18 03:24 Plt Count 524 K/uL (152-406) H 10/03/18 03:24 PT 12.5 SECONDS (9.5-12.5) 09/23/18 21:48 INR 1.06 09/23/18 21:48 Sodium 137 mmol/L (136-145) 09/30/18 05:44 Potassium 3.5 mmol/L (3.5-5.1) 09/30/18 05:44 BUN 16 mg/dL (7-18) 09/30/18 05:44 Creatinine 0.68 mg/dL (0.55-1.3) 09/30/18 05:44 Glucose 121 mg/dL (74-106) H 09/30/18 05:44 Magnesium 2.0 mg/dL (1.8-2.4) 09/24/18 04:33 Total Bilirubin 0.9 mg/dL (0.2-1.0) 09/30/18 05:44 AST 18 U/L (15-37) 09/30/18 05:44 ALT 10 U/L (12-78) L 09/30/18 05:44 Alkaline Phosphatase 98 U/L (45-117) 09/30/18 05:44 Home Medications: Aspirin 81 mg PO DAILY 09/24/18 Carbidopa/Levodopa [Carbidopa-Levo 25-100 mg Odt] 2 tab PO QID 09/24/18 Docusate [Colace Cap*] 100 mg PO DAILY 09/24/18 Donepezil HCl 10 mg PO DAILY 09/24/18 Ezetimibe [Zetia*] 10 mg PO DAILY 09/24/18 Lisinopril [Prinivil*] 10 mg PO DAILY 09/24/18 Montelukast [Singulair*] 10 mg PO DAILY 09/24/18 PHENYTOIN ER Cap [Dilantin ER Cap*] 4 cap PO BEDTIME 04/08/19 Rosuvastatin Calcium [Crestor] 20 mg PO BEDTIME 09/24/18 Enoxaparin Sodium [Lovenox 30 MG INJ*] 30 mg SQ DAILY 5 PM #20 syr 10/03/18 Tramadol HCl [Ultram] 50 mg PO BID PRN #15 tablet 10/03/18 New Medications: Enoxaparin Sodium [Lovenox 30 MG INJ*] 30 mg SQ DAILY 5 PM #20 syr Tramadol HCl [Ultram] 50 mg PO BID PRN #15 tablet PRN Reason: Pain Scale 2-4 (Mild) Patient Discharge Instructions: 1. Patient to be discharged to skilled facility to continue rehabilitation. 2. Patient admitted for right hip fracture status post mechanical fall. Patient was seen and evaluated by orthopedics. Surgery recommended. Patient had insertion of unipolar cemented hemiarthroplasty. From orthopedic standpoint patient did well. Patient was accepted to go to skilled facility continue rehabilitation. At discharge patient will follow up with orthopedics within 1 week for staple removal. Patient will continue with tramadol 50 mg 1 pill twice daily as needed for pain. Patient will continue with Lovenox 30 mg subcu daily for DVT prophylaxis for at least 20 days[address] Fall precautions in place. Patient will continue with physical therapy. 3. During the course of his stay patient had gross hematuria. Patient was seen and evaluated by urology. Cystoscopy was performed. Excoriation of the left penile bulbar urethral area was noted. This was likely from trauma from recent gage removal. Hematuria was controlled. Patient did well after cystoscopy. Urine culture negative for infection. At discharge patient will continue with Gage catheter for 1 more week. After that time Gage catheter can be removed. Recommend to follow up with urology within 1-2 weeks to follow up this hospitalization. 4. Patient also had some dysphagia prior to discharge to skilled facility. Patient was seen and evaluated by speech therapy. Modified barium swallow performed. Patient found to have mild to moderate oral dysphagia, mild to severe pharyngeal dysphagia dietary recommendations included regular solids with nectar thickened liquids. Home medications to be administered one at a time is recommended. Compensatory strategies to be continued. Patient to remain upright during all oral intake and for at least 45 min after eating. Patient to continue with eating at a slower rate, small bites, small sips, alternate bites/sips, multiple swallows, and increased rest between presentations is recommended. Patient would benefit from 5-6 small meals a day instead of 3 large moderate meals. Patient to continue with speech therapy. Initial CT neck showed possible large uvula. Evaluation by ENT as an outpatient is recommended. Further recommendation is to follow up with ENT and/or GI for further recommendation. 5. Patient with underlying Parkinson's. This has remained stable. At discharge he will continue with carbidopa levodopa 25/100 mg 2 pills 4 times a day. Recommend follow up with neurology as an outpatient. 6. Patient with underlying seizure disorder. At discharge he will continue with Dilantin ER 100 mg 4 pills at bedtime. Recommend follow up with neurology as an outpatient. 7. Patient with dementia. Patient will continue with Aricept 10 mg daily. Recommend to follow up with neurology as directed. 8. Patient with hypertension. At discharge he will continue with lisinopril 10 mg 1 pill daily. Recommend to maintain blood pressures less 150/80. Further adjustment can be done by his PCP. 9. Patient with hyperlipidemia. At discharge he will continue with Zetia 10 mg daily and Crestor 20 mg daily. 10. Patient with history of diabetes. This appears to be diet controlled. Continue to monitor blood sugars. Recommend to maintain blood sugars less 140 fasting and less than 200 after meals. Further evaluation and monitoring can be done by his PCP. 11. Patient likely with underlying anemia of chronic disease. This remained stable postoperatively and with recent gross hematuria. Recommend to follow up with lab-CBC in 1-2 weeks to monitor stability. Diet: ADA (With nectar thickened liquids) Activity: Fall precautions Time spent managing pt's care (in minutes): 55
--- NOTE | 2018-10-03 13:28 | P.PN ---
Date of Service: 10/03/18 (POD#8) S: SAW PATIENT THIS MORNING, RECLINING IN BED. RELAXED WITHOUT DISCOMFORT, ANTICIPATING DISCHARGE TODAY OR TOMORROW IN [facility] SPIRITS. O: AFEBRILE, VSS, HGB 10.3 THIS AM, WAS 10.4 YESTERDAY. WBC 8.1, N65%. BANDAGE CLEAN DRY AND INTACT. PATIENT DEMONSTRATES GOOD MOTION AND STRENGTH FOR RIGHT ANKLE AND FOOT WITH DORSIFLEXION AND PLANTARFLEXION. PATIENT ABLE TO EXTEND KNEE AND DO STRAIGHT LEG LIFTS, AND IS ENCOURAGED TO DO SO SPONTANEOUSLY THROUGHOUT THE DAY PREPARATION TO DOING BETTER WITH PHYSICAL THERAPY. PT NOTES INDICATE 30 FEET TRAVELED WITH FRONT WHEELED ROLLING WALKER WITH MINIMAL ASSIST. A REST STOP IN THE WHEELCHAIR WAS FOLLOWED BY GOING 90 FEET WITH MINIMUM ASSIST. A: POST OP DAY #8. SNF MAY BE AVAILABLE TODAY. P: CONTINUE MOBILIZATION. TRANSFERS AND WEIGHTBEARING TOLERATED RIGHT LOWER EXTREMITY, AAROM & PROM. WOULD USE ANTICOAGULATION FOR 30 D POST OP IF POSSIBLE. PATIENT HAD BAER TRAUMA AND BAER WAS INSERTED FOR COMPRESSION OF THE ABRADED AREA AT THE END OF YESTERDAY'S PROCEDURE TO BE LEFT IN PLACE FOR 7D. CHANGE AQUACEL BANDAGE PRIOR TO DISCHARGE WITH ALCOHOL SWABS AND NEW AQUACEL BANDAGE. F/U MY OFFICE ~1 WEEK POST DISCHARGE FOR REMOVAL OF RODRIGO WITH APPLICATION OF NEW AQUACEL BANDAGE.
== END 2018-10-03 12:34 | DRG 470 ==
LOC: ER 20:28 → ERHOLD 23:04 → 4TH 09-24 00:18
PROVIDERS: ADMIT Internal Medicine; ATTEND Family Medicine
PROC: 0SRR0J9 Replacement of Right Hip Joint, Femoral Surface with Synthetic Substitute, Cemented, Open Approach (ICD-10-PCS; principal; 2018-09-25 09:15)
PROC: 0TJB8ZZ Inspection of Bladder, Via Natural or Artificial Opening Endoscopic (ICD-10-PCS; 2018-10-01)
DX: S72.041A Displaced fracture of base of neck of right femur, initial encounter for closed fracture (principal); T83.83XA Hemorrhage due to genitourinary prosthetic devices, implants and grafts, initial encounter; W10.9XXA Fall (on) (from) unspecified stairs and steps, initial encounter; Y93.01 Activity, walking, marching and hiking; Y92.019 Unspecified place in single-family (private) house as the place of occurrence of the external cause; E78.5 Hyperlipidemia, unspecified; G40.909 Epilepsy, unspecified, not intractable, without status epilepticus; G20 Parkinson's disease; Z87.891 Personal history of nicotine dependence; R31.0 Gross hematuria; J43.9 Emphysema, unspecified; E11.8 Type 2 diabetes mellitus with unspecified complications; F02.80 Dementia in other diseases classified elsewhere, unspecified severity, without behavioral disturbance, psychotic disturbance, mood disturbance, and anxiety; Y73.1 Therapeutic (nonsurgical) and rehabilitative gastroenterology and urology devices associated with adverse incidents; Y92.230 Patient room in hospital as the place of occurrence of the external cause; R13.11 Dysphagia, oral phase; R13.13 Dysphagia, pharyngeal phase; D63.8 Anemia in other chronic diseases classified elsewhere
CPT/HCPCS: 36415; 70450; 71045; 72125; 72170; 74230; 76770; 76857; 80048; 80053; 81003; 81015; 82962; 83735; 85014; 85018; 85025; 85610; 87070; 87086; 87088; 87205; 88305; 88311; 92610; 92611; 93005; 94640; 96374; 97110; 97112; 97116; 97163; 97167; 97530; 99285; J0690; J0696; J1580; J1650; J2250; J2270; J2370; J2405; J2704; J3010; J7030

== ENCOUNTER 2020-03-10 16:37 | Emergency (ER) | payer MEDICARE ==
--- OUTSIDE RECORDS SUMMARY | 2020-03-10 16:42 | XMS REPORT | Summary of Care ---
:1940 Author Organization [facility] [place] Address [address] [place] [address]- phone Encounter HQ Encntr_alias(FIN) [id number] Date(s): 01/28/20 - 01/28/20 [facility] [address] [place] [address] [phone] Attending Physician: Suraj Cedillo MD Referring Physician: Albaro Junior MD Vital Signs No data available for this section Problem List Condition Effective Dates Status Health Status Informant Dementia(Confirmed) Active Hyperlipidemia(Confirmed) Active Hypertension(Confirmed) Active Parkinson disease(Confirmed) Active Intractable complex partial Active epilepsy(Confirmed) Allergies, Adverse Reactions, Alerts No Known Medication Allergies Medications No data available for this section Results No data available for this section Immunizations No data available for this section Procedures No data available for this section Social History Social History Type Response Smoking Status Never smoker; Exposure to To bacco Smoke None; Cigarette Smoking Last 365 Days No; Reg Smoking Cessation Counseling No entered on: 01/09/20 Assessment and Plan No data available for this section
--- OUTSIDE RECORDS SUMMARY | 2020-03-10 16:42 | XMS REPORT | Summary of Care ---
:1940 Author Organization [facility] Address [address] [place] [address]- Encounter HQ Fernando(AUREA) [id number] Date(s): 01/09/20 - 01/09/20 [facility] [address], [place] [address]- [phone] Discharge Disposition: Home or Self Care Attending Physician: Suraj Cedillo MD Referring Physician: Albaro Junior MD Vital Signs Most recent to oldest [Reference Range]: 1 Height 182.88 cm (01/09/20 2:05 PM) Blood Pressure [90-140/60-90 mmHg] 118/60 mmHg (01/09/20 2:05 PM) Respiratory Rate [14-20 BRMIN] 16 BRMIN (01/09/20 2:05 PM) Peripheral Pulse Rate [60-100 bpm] 81 bpm (01/09/20 2:05 PM) Weight 70.455 kg (01/09/20 2:05 PM) Body Mass Index 21.07 m2 (01/09/20 2:05 PM) Problem List Condition Effective Dates Status Health Status Informant Dementia(Confirmed) Active Hyperlipidemia(Confirmed) Active Hypertension(Confirmed) Active Parkinson disease(Confirmed) Active Intractable complex partial Active epilepsy(Confirmed) Allergies, Adverse Reactions, Alerts No Known Medication Allergies Medications pramipexole 0.5 mg oral tablet 0.5 mg = 1 tab, PO, BID, # 60 tab, 3 Refill(s), Pharmacy: [facility] [place], 182.88, cm, 01/09/20 14:05:00 CDT, Height, 70.455, kg, 01/09/20 14:05:00 CDT, Weight Start Date: 01/09/20 Stop Date: 05/08/20 Status: Ordered Results No data available for this section [...]
--- OUTSIDE RECORDS SUMMARY | 2020-03-10 16:42 | XMS REPORT | Summary of Care ---
:1940 Author Organization [facility] [place] Address [address] [place] [address]- phone Encounter HQ Encntr_alias(FIN) [id number] Date(s): 01/28/20 - 01/28/20 [facility] [address] [place] [address]- [phone] Attending Physician: Suraj Cedillo MD Referring Physician: [...]
--- OUTSIDE RECORDS SUMMARY | 2020-03-10 16:42 | XMS REPORT | Continuity of Care Document ---
:1940 Author Organization [facility] Care Team Providers Name Role Phone Royal Wins Information I[place]uentra Unavailable Un available Problems Problem Status Onset Classification Date Comments Sourc e Date Reported Dementia Active Problem 01/30/2020 Mischer (disorder) Neuro Hyperlipidemia Active Problem 01/30/2020 Misc her (disorder) Neuro Hypertensive Active Problem 01/30/2020 Mische r disorder, systemic N euro arterial (disorder) Parkinson's Active Problem 01/30/2020 Mischer disease (disorder) N euro Partial epilepsy Active Problem 01/30/2020 Mi karla with impairment of N euro consciousness (disorder) Medications Medication Details Route Status Patient Ordering Order Source Instructions Provider Date pramipexole 0.5 0.5 mg = 1 Active Misch er mg oral tablet tab, PO, 020 Neuro BID, # 60 tab, 3 Refill(s), Pharmacy: [facility], 182.88, cm, 01/09/20 14:05:00 CDT, Height, 70.455, kg, 01/09/20 14:05:00 CDT, Weight donepezil 10 mg = 1 tab, Active Mischer oral tablet PO, 020 Neuro Bedtime, # 30 tab, 3 Refill(s), Pharmacy: [facility] pramipexole 0.25 See Active Mischer mg oral tablet Instruction 020 Neuro s, TAKE ONE (1) TABLET(S) BY MOUTH TWICE A DAY., # 60 ea, 6 Refill(s), Pharmacy: [facility] pramipexole 0.25 See Active Mischer mg oral tablet Instruction 020 Neuro s, # 60 ea, TAKE ONE (1) TABLET(S) BY MOUTH TWICE A DAY., Pharmacy: [facility] memantine 10 mg See Active Mischer oral tablet Instruction 020 Neuro s, # 60 ea, Refill(s) 2, TAKE ONE (1) TABLET(S) BY MOUTH TWICE A DAY., Pharmacy: [facility] pramipexole 0.25 See Inactive Mische r mg oral tablet Instruction 020 Neuro s, # 60 ea, Refill(s) 2, TAKE ONE (1) TABLET(S) BY MOUTH TWICE A DAY., Pharmacy: [facility] Memantine 10 mg = 1 Active Mischer hydrochloride 10 tab, PO, 019 Neuro MG Oral Tablet BID, # 60 [Namenda] tab, 3 Refill(s), Pharmacy: [id number] Pramipexole 0.25 mg = 1 Active Mischer dihydrochloride tab, PO, 019 Neuro 0.25 MG Oral BID, # 60 Tablet [Mirapex] tab, 3 Refill(s), Pharmacy: [facility] #[id number] Memantine 5 mg = 1 Active Mischer hydrochloride 5 tab, PO, 019 Neuro MG Oral Tablet BID, # 60 [Namenda] tab, 3 Refill(s), Pharmacy: [facility] [employer] [id number] Pramipexole 0.125 mg = Active Mischer dihydrochloride 1 tab, PO, 019 Neuro 0.125 MG Oral BID, # 60 Tablet [Mirapex] tab, 3 Refill(s), Pharmacy: [facility] [employer] [id number] phenytoin 100 mg 400 mg = 4 Active Misc her oral capsule, cap, PO, 019 Neuro extended release Bedtime, # 120 cap, 3 Refill(s), Pharmacy: [facility] #[id number] donepezil 10 mg 10 mg = 1 Active Mische r oral tablet tab, PO, 019 Neuro Bedtime, # 30 tab, 3 Refill(s), Pharmacy: [facility] #[id number] Carbidopa 25 MG / 1 tab, PO, Active Mis domenico Levodopa 250 MG QID, # 120 019 Neuro Oral Tablet tab, 3 Refill(s), Pharmacy: [facility] #[id number] montelukast 10 mg 10 mg = 1 Active Misc her oral tablet tab, PO, 019 Neuro Daily, 0 Refill(s) Carbidopa 25 MG / 2 tab, PO, Inactive Mi karla Levodopa 100 MG QID, # 120 019 Neuro Oral Tablet tab, 0 Refill(s) phenytoin 100 mg 400 mg = 4 Inactive Mis domenico oral capsule, cap, PO, 019 Neuro extended release Bedtime, # 90 cap, 0 Refill(s) lisinopril 10 mg 10 mg = 1 Active Misch er oral tablet tab, PO, 019 Neuro Daily, 0 Refill(s) 8 HR 1,300 mg = Active Mischer Acetaminophen 650 2 tab, PO, 019 Margarita ro MG Extended Q8H, 0 Release Tablet Refill(s) [Tylenol] Aspirin 81 MG 81 mg = 1 Active Mischer Enteric Coated tab, PO, 019 Neuro Tablet Daily, # 90 tab, 3 Refill(s) tramadol 50 mg = 1 Active Mischer hydrochloride 50 tab, PO, 019 Neuro MG Oral Tablet Q4H, PRN Pain, # 60 tab, 0 Refill(s) ezetimibe 10 mg 10 mg = 1 Active Mische r oral tablet tab, PO, 019 Neuro Daily, 0 Refill(s) rosuvastatin 20 20 mg = 1 Active Mische r mg oral tablet tab, PO, 019 Neuro Daily, 0 Refill(s) donepezil 10 mg 10 mg = 1 Inactive Misch er oral tablet tab, PO, 019 Neuro Bedtime, 0 Refill(s) Docusate Sodium 100 mg = 1 Active Misch er 100 MG Oral cap, PO, 019 Neuro Capsule BID, 0 Refill(s) Allergies, Adverse Reactions, Alerts Substance Category Reaction Severity Reaction Status Date Comments S ource type Reported No Known Assertion Drug Misch er Medication allergy Neuro Allergies Immunizations No Data Provided for This Section Results No Data Provided for This Section Pathology Reports No Data Provided for This Section Diagnostic Reports No Data Provided for This Section Consultation Notes No Data Provided for This Section Discharge Summaries No Data Provided for This Section History and Physicals No Data Provided for This Section Vital Signs Vital Sign Value Date Comments Source Systolic (mm Hg) 118 01/09/2020 [facility] Margarita ro Diastolic (mm Hg) 60 01/09/2020 [facility] Ne uro Heart Rate 81 01/09/2020 [facility] Neuro Respitory Rate 16 01/09/2020 [facility] Height 182.88 cm 01/09/2020 [facility] Neuro Weight 70.455 01/09/2020 [facility] Neuro BMI Calculated 21.07 01/09/2020 [facility] Neuro Systolic (mm Hg) 125 05/13/2019 [facility] Margarita ro Diastolic (mm Hg) 71 05/13/2019 [facility] Ne uro Heart Rate 86 05/13/2019 [facility] Neuro Respitory Rate 16 05/13/2019 [facility] Height 190.5 cm 05/13/2019 [facility] Weight 72.727 05/13/2019 [facility] BMI Calculated 20.04 05/13/2019 [facility] Neuro Systolic (mm Hg) 129 04/04/2019 [facility] Margarita ro Diastolic (mm Hg) 70 04/04/2019 [facility] Ne uro Heart Rate 83 04/04/2019 [facility] Neuro Respitory Rate 16 04/04/2019 [facility] Height 190.5 cm 04/04/2019 [facility] Weight 72.727 04/04/2019 [facility] Neuro BMI Calculated 20.04 04/04/2019 [facility] Neuro Systolic (mm Hg) 89 02/21/2019 [facility] Margarita ro Diastolic (mm Hg) 51 02/21/2019 [facility] Ne uro Heart Rate 83 02/21/2019 [facility] Neuro Respitory Rate 16 02/21/2019 [facility] Height 187.96 cm 02/21/2019 [facility] Weight 72.273 02/21/2019 [facility] Neuro BMI Calculated 20.46 02/21/2019 [facility] Weight 72.273 01/23/2019 [facility] Neuro BMI Calculated 22.86 01/23/2019 [facility] Height 177.8 cm 01/23/2019 [facility] Neuro Systolic (mm Hg) 126 01/23/2019 [facility] Margarita ro Diastolic (mm Hg) 63 01/23/2019 [facility] Ne uro [facility] 79 [facility] Resp[facility] 16 01/23/2019 [facility] Neuro Encounters Location Location Encounter Encounter Reason Attending ADM LA Stat us Source Details Type Number For Provider Date Date Visit Outpatient [id number] Suraj 01/23 [facility] [place] [facility] [id number] Suraj 01/23 01/24 [facility] [place] [facility] [id number] Suraj 02/21 [facility] [place] [facility] Outpatient [id number] Suraj 02/21 02/22 [facility] [place] [facility] [id number] Suraj 04/04 [facility] [place] [facility] [id number] Suraj 04/04 04/05 [facility] [place] [facility] [id number] Suraj 05/13 [facility] [place] [facility] [id number] Suraj 05/13 05/14 [facility] [place] [facility] [id number] Suraj 09/09 [facility] [place] [facility] [id number] Suraj 09/09 09/09 [facility]2019 [facility] [place] Out[facility] [id number] Suraj 10/24 [facility] [place] [facility] [id number] Albaro Junior 10/24 10/25 [facility] /2019 [facility] [place] Out[facility] [id number] Suraj 01/08 [facility] [place] [facility] [id number] Albaro Junior 01/08 01/09 [facility] /2019 [facility] [place] Out[facility] [id number] Suraj 01/27 [facility] [place] [facility] [id number] Suraj 01/27 [facility] [place] [facility] [id number] Albaro Junior 01/27 01/27 [facility]2019 [facility] [place] [facility] [id number] Albaro Junior 01/27 01/27 [facility] /2019 [facility] [place] Out[facility] [id number] Suraj 07/14 [facility] [place] Procedures No Data Provided for This Section Assessment and Plan No Data Provided for This Section Plan of Care No Data Provided for This Section Social History Social History Date Source Social History TypeResponse 01/09/2020 [facility] o Smoking Status Never smoker; Exposure to Tobacco Smoke None; Cigarette Smoking Last 365 Days No; Reg Smoking Cessation Counseling No entered on: 01/09/20 Family History No Data Provided for This Section Advance Directives No Data Provided for This Section Functional Status No Data Provided for This Section
[2020-03-10] MEDS ORDERED: HYDROCODONE/APAP 7.5/325 MG TAB ONE (18:51)
--- NOTE | 2020-03-10 19:04 | RAD REPORT ---
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 No dislo cation is seen.
--- NOTE | 2020-03-10 19:04 | RAD REPORT ---
EXAM DESCRIPTION: RAD - Hip Right 2 View - 03/10/2020 6:48 pm CLINICAL HISTORY: PAIN Fall, hip pain COMPARISON: Hip Right 2 View dated 09/23/2018 FINDINGS: Right total hip arthroplasty is noted. No evidence of hardware complication.
--- NOTE | 2020-03-10 20:09 | RAD REPORT ---
EXAM DESCRIPTION: CT - Pelvis Wo Cont - 03/10/2020 7:38 pm CLINICAL HISTORY: fall, pain Fall, right hip pain COMPARISON: Pelvis dated 03/10/2020; Hip Right 2 View dated 03/10/2020 TECHNIQUE: All CT scans are performed using dose optimization technique as appropriate and may inclu de automated exposure control or mA/KV adjustment according to patient size. FINDINGS: A right total hip arthroplasty is noted. There is subtle heterotopic bone projecting anter iorly and posteriorly from the femoral trochanters. There is a subtle lucency within some of this het erotopic bone particularly anteriorly. It is possible the patient has subtle fracture through these a reas heterotopic bone. This is an equivocal finding, however. Right hip hardware is intact. There is no evidence of hardware loosening. Sacral ala are intact. No p elvic fracture. Moderately severe osteoarthritis of the left hip. Prominent lumbar spondylosis. IMPRESSION: Subtle areas of lucency are seen within heterotopic bone projecting from the trochanteri c region on the right, particularly anteriorly. This could indicate subtle nondisplaced fracture thro ugh this bone, however this is an equivocal finding and doubtful to be of any clinically relevant sig nificance.
--- NOTE | 2020-03-10 20:45 | ER ---
Nurse's Notes [facility] Name: Sterling Moe Age: 80 yrs Sex: Male : 1940 Arrival Date: 03/10/2020 Time: 16:40 Bed 7 Private MD: Albaro Junior T Diagnosis: Pain in right hip;Fall on same level from slipping, tripping and stumbling Presentation: 03/10 17:04 Chief complaint: Patient states: mechanical fall and landed on right hip, had hip em replaced in the right hip, was able to ambulate, just wants to make sure nothing is cracked. Coronavirus screen: Client denies travel out of the [place] in the last 14 days. Ebola Screen: Patient negative for fever greater than or equal to 101.5 degrees Fahrenheit, and additional compatible Ebola Virus Disease symptoms Patient denies exposure to infectious person. Patient denies travel to an Ebola-affected area in the 21 days before illness onset. No symptoms or risks identified at this time. Initial Sepsis Screen: Does the patient meet any 2 criteria? No. Patient's initial sepsis screen is negative. Does the patient have a suspected source of infection? No. Patient's initial sepsis screen is negative. Risk Assessment: Do you want to hurt yourself or someone else? Patient reports no desire to harm self or others. Onset of symptoms was March 10, 2020. 17:04 Method Of Arrival: Wheelchair em 17:04 Acuity: EDVIN 3 em Historical: - Allergies: 17:06 No Known Allergies; em - PMHx: 17:06 Diabetes - NIDDM; High Cholesterol; Hyperlipidemia; Hypertension; Parkinsons; Seizures; em - PSHx: 17:06 Appendectomy; right hip; em - Immunization history:: Adult Immunizations up to date. - Social history:: Smoking status: Patient denies any tobacco usage or history of. Screenin:09 Abuse screen: Denies threats or abuse. Nutritional screening: No deficits noted. tw2 Tuberculosis screening: No symptoms or risk factors identified. Fall Risk Secondary diagnosis (15 points) impaired mobility. Primary Survey: 18:15 NO uncontrolled hemorrhage observed. A: The patient is alert. Airway: patent, No sv supplemental oxygen in use on arrival. Oral cavity: clear, Trachea midline. Breathing/Chest: Respiratory pattern: regular, Respiratory effort: spontaneous, unlabored, Chest inspection: symmetrical rise and fall of the chest. Circulation: Pulses: palpable right dorsalis pedis artery and left dorsalis pedis artery. Skin color: pink, Skin temperature: warm, dry. Disability Alert. Exposure/Environment: All clothing and personal items were removed. Forensic evidence collection is not deemed to be indicated at this time. Items placed in patient belonging bag. There is no evidence of uncontrolled external bleeding. No obvious injuries are noted at this time. A warming method has been applied: A warm blanket has been provided to the patient. Secondary Survey: 18:15 HEENT: No deficits noted. Gastrointestinal: No deficits noted. : No deficits noted. sv No signs and/or symptoms were reported regarding the genitourinary system. Musculoskeletal: Reports pain in right hip. Assessment: 18:48 General: Appears in no apparent distress. slender, well groomed, Behavior is calm, tw2 cooperative, appropriate for age. Pain: Complains of pain in RIGHT hip. Neuro: Level of Consciousness is awake, alert, obeys commands, Oriented to person, place, time, situation. Cardiovascular: Heart tones S1 S2 Patient's skin is warm and dry. Respiratory: Airway is patent Respiratory effort is even, unlabored, Respiratory pattern is regular, symmetrical, Breath sounds are clear bilaterally. GI: No signs and/or symptoms were reported involving the gastrointestinal system. Abdomen is flat, Bowel sounds present X 4 quads. : No signs and/or symptoms were reported regarding the genitourinary system. EENT: No signs and/or symptoms were reported regarding the EENT system. Derm: No signs and/or symptoms reported regarding the dermatologic system. Musculoskeletal: Reports pain in RIGHT hip states "i can put weight on it, but it really hurts and I had a hip replacement last September". 19:00 Reassessment: Patient is alert, oriented x 3, equal unlabored respirations, skin bb warm/dry/pink. Neuro: Level of Consciousness is awake, alert, obeys commands, Oriented to person, place, situation. Cardiovascular: Heart tones present Capillary refill < 3 seconds Patient's skin is warm and dry. Respiratory: Airway is patent Respiratory effort is even, unlabored. GI: No signs and/or symptoms were reported involving the gastrointestinal system. Derm: Skin is pale. Musculoskeletal: Circulation, motion, and sensation intact. Reports pain in right hip. 19:33 Reassessment: pt to CT scan via stretcher with setup technician. bb 20:30 Reassessment: Patient is alert, oriented x 3, equal unlabored respirations, skin bb warm/dry/pink. pt states he is not feeling any pain now verbalized understanding of and agrees to plan of care discharge instructions given pt assisted to exit via wheelchair accompanied by family Patient states feeling better. Patient states symptoms have improved. Vital Signs: 17:04 BP 134 / 80; Pulse 85; Resp 18; Temp 98.2; Pulse Ox 100% on R/A; Weight 70.31 kg; em Height 6 ft. 2 in. (187.96 cm); 18:45 BP 143 / 86; Pulse 85; Resp 16; Pulse Ox 99% ; sv 21:06 BP 147 / 87; Pulse 87; Resp 16 S; Temp 97.9(O); Pulse Ox 100% on R/A; Pain 0/10; bb 17:04 Body Mass Index 19.90 (70.31 kg, 187.96 cm) em [place] Coma Score: 18:45 Eye Response: spontaneous(4). Verbal Response: oriented(5). Motor Response: obeys sv commands(6). Total: 15. Trauma Score (Adult): 18:45 Eye Response: spontaneous(1); Verbal Response: oriented(1); Motor Response: obeys sv commands(2); Systolic BP: > 89 mm Hg(4); Respiratory Rate: 10 to 29 per min(4); [place] Score: 15; Trauma Score: 12 ED Course: 16:40 Patient arrived in ED. ag5 16:40 Albaro Junior MD is Private Physician. ag5 17:06 Triage completed. em 17:06 Arm band placed on. Antipyretics given from triage as ordered by an ER provider. em 17:55 Danny Marrufo PA is PHCP. cp 17:55 Daniel Madrigal MD is Attending Physician. cp 17:55 Bed in low position. Call light in reach. Side rails up X 1. Adult w/ patient. Pulse ox tw2 on. NIBP on. 18:35 Joyce Gonzalez, JANET is Primary Nurse. tw2 18:48 Hip Right 2 View XRAY In Process Unspecified. EDMS 18:48 Pelvis XRAY In Process Unspecified. EDMS 19:00 Report given to JANET Navarro \\T\\ JANET Woodard. tw2 19:37 CT Pelvis wo Cont In Process Unspecified. EDMS 21:07 No provider procedures requiring assistance completed. Patient did not have IV access bb during this emergency room visit. Administered Medications: 18:48 Drug: Hydrocodone-Acetaminophen (7.5 mg-325 mg) 1 tabs Route: PO; tw2 19:57 Follow up: Response: Pain is decreased; RASS: Alert and Calm (0) bb Intake: 18:45 PO: 0ml; Total: 0ml. sv Output: 18:45 Urine: 0ml; Total: 0ml. sv Outcome: 20:44 Discharge ordered by MD. cp 20:59 Patient left the ED. ll1 21:07 Discharged to home via wheelchair, with family. bb 21:07 Condition: stable 21:07 Discharge instructions given to patient, family, Instructed on discharge instructions, follow up and referral plans. medication usage, Demonstrated understanding of instructions, follow-up care, medications, Prescriptions given X 2. Signatures: Dispatcher [employer] Tri Norman, RN RN Neil Brannon, JANET RN Melanie Acharya RN RN bb Page, Corey, PA PA cp Wise, Tara, RN RN [facility] Juan Mike, JANET RN ll1
--- NOTE | 2020-03-10 20:45 | EDPHYS ---
Physician Documentation [facility] Name: Sterling Moe Age: 80 yrs Sex: Male : 1940 Arrival Date: 03/10/2020 Time: 16:40 Bed 7 Private MD: Albaro Junior T ED Physician Daniel Madrigal HPI: 03/10 18:20 This 80 yrs old Male presents to ER via Wheelchair with complaints of Fall cp Injury, Hip Pain. 18:20 Details of fall: The patient fell from an upright position, while walking. Onset: The cp symptoms/episode began/occurred today. Associated injuries: The patient sustained right hip. Severity of symptoms: in the emergency department the symptoms are unchanged, despite home interventions. Historical: - Allergies: 17:06 No Known Allergies; em - PMHx: 17:06 Diabetes - NIDDM; High Cholesterol; Hyperlipidemia; Hypertension; Parkinsons; Seizures; em - PSHx: 17:06 Appendectomy; right hip; em - Immunization history:: Adult Immunizations up to date. - Social history:: Smoking status: Patient denies any tobacco usage or history of. ROS: 18:25 MS/extremity: Positive for pain, tenderness, of the right hip, Negative for decreased cp range of motion, deformity. 18:25 Eyes: Negative for injury, pain, redness, and discharge. cp 18:25 Constitutional: Negative for body aches, fever. 18:25 Neck: Negative for pain with movement, pain at rest, stiffness. 18:25 Cardiovascular: Negative for chest pain. 18:25 Respiratory: Negative for cough, shortness of breath, wheezing. 18:25 Abdomen/GI: Negative for abdominal pain, nausea, vomiting, and diarrhea. 18:25 Back: Negative for pain at rest, pain with movement. 18:25 Neuro: Negative for altered mental status, headache, loss of consciousness, syncope, weakness. 18:25 All other systems are negative. Exam: 18:30 Constitutional: The patient appears in no acute distress, alert, awake, cp non-diaphoretic, non-toxic, well developed, well nourished. 18:30 Head/Face: Normocephalic, atraumatic. cp 18:30 Eyes: Periorbital structures: appear normal, Conjunctiva: normal, no exudate, no injection, Sclera: no appreciated abnormality, Lids and lashes: appear normal, bilaterally. 18:30 ENT: External ear(s): are unremarkable, Nose: is normal, Posterior pharynx: Airway: no evidence of obstruction, patent. 18:30 Neck: C-spine: vertebral tenderness, is not appreciated, crepitus, is not appreciated, ROM/movement: is normal, is supple, without pain, no range of motions limitations. 18:30 Chest/axilla: Inspection: normal, Palpation: is normal, no crepitus, no tenderness. 18:30 Cardiovascular: Rate: normal, Rhythm: regular. 18:30 Respiratory: the patient does not display signs of respiratory distress, Respirations: normal, no use of accessory muscles, labored breathing, is not present, Breath sounds: are clear throughout, no decreased breath sounds. 18:30 Abdomen/GI: Inspection: abdomen appears normal, Palpation: abdomen is soft and non-tender, in all quadrants. 18:30 Back: vertebral tenderness, is not appreciated. 18:30 Musculoskeletal/extremity: Extremities: grossly normal except: noted in the right hip: pain, tenderness, There is no evidence of decreased ROM, deformity, ROM: limited passive range of motion due to pain, in the right hip. 18:30 Neuro: Orientation: to person, place \T\ time. Mentation: is normal. Vital Signs: 17:04 BP 134 / 80; Pulse 85; Resp 18; Temp 98.2; Pulse Ox 100% on R/A; Weight 70.31 kg; em Height 6 ft. 2 in. (187.96 cm); 18:45 BP 143 / 86; Pulse 85; Resp 16; Pulse Ox 99% ; sv 21:06 BP 147 / 87; Pulse 87; Resp 16 S; Temp 97.9(O); Pulse Ox 100% on R/A; Pain 0/10; bb 17:04 Body Mass Index 19.90 (70.31 kg, 187.96 cm) em Hood Coma Score: 18:45 Eye Response: spontaneous(4). Verbal Response: oriented(5). Motor Response: obeys sv commands(6). Total: 15. Trauma Score (Adult): 18:45 Eye Response: spontaneous(1); Verbal Response: oriented(1); Motor Response: obeys sv commands(2); Systolic BP: > 89 mm Hg(4); Respiratory Rate: 10 to 29 per min(4); Cardwell Score: 15; Trauma Score: 12 MDM: 18:12 Patient medically screened. cp 19:00 Differential diagnosis: contusion, fracture, multiple trauma, dislocation. cp 20:43 Data reviewed: vital signs, nurses notes, radiologic studies, CT scan, plain films, I cp have discussed the patient's presentation/case with the attending Emergency Department Physician; and as a result, I will discharge patient. 03/10 17:36 Order name: Hip Right 2 View XRAY; Complete Time: 20:19 kb 03/10 17:36 Order name: Pelvis XRAY; Complete Time: 20:19 kb 03/10 19:02 Order name: CT Pelvis wo Cont; Complete Time: 20:19 cp Administered Medications: 18:48 Drug: Hydrocodone-Acetaminophen (7.5 mg-325 mg) 1 tabs Route: PO; tw2 19:57 Follow up: Response: Pain is decreased; RASS: Alert and Calm (0) bb Disposition: 03/10/20 20:44 Discharged to Home. Impression: Pain in right hip, Fall on same level from slipping, tripping and stumbling. - Condition is Stable. - Discharge Instructions: Hip Pain. - Prescriptions for Mobic 7.5 mg Oral Tablet - take 1 tablet by ORAL route once daily take with food; 20 tablet. Tylenol- Codeine #3 300-30 mg Oral Tablet - take 2 tablets by ORAL route every 6 hours As needed; 20 tablet. - Medication Reconciliation Form, Thank You Letter, Antibiotic Education, Prescription Opioid Use form. - Follow up: Private Physician; When: 2 - 3 days; Reason: Recheck today's complaints. - Problem is new. - Symptoms have improved. Addendum: 03/12/2020 07:17 Co-signature as Attending Physician, Daniel Madrigal MD. r n Signatures: Dispatcher [employer] Neil Blackwood RN Daniel Gray MD MD rn Page, Corey, PA PA cp Joyce Gonzalez RN RN tw2 Juan Mike RN RN ll1 Melanie Berg RN bb Corrections: (The following items were deleted from the chart) 03/10 19:38 18:14 Femur Right+[email or web address] ordered. EDMS EDMS 20:59 20:44 03/10/2020 20:44 Discharged to Home. Impression: Pain in right hip; Fall on same ll1 level from slipping, tripping and stumbling. Condition is Stable. Forms are Medication Reconciliation Form, Thank You Letter, Antibiotic Education, Prescription Opioid Use. Follow up: Private Physician; When: 2 - 3 days; Reason: Recheck today's complaints. Problem is new. Symptoms have improved. cp
[2020-03-10 21:04] VITALS: TEMP 98.2
[2020-03-10 21:05] VITALS: BP 143/86; O2SAT 99
== END 2020-03-10 20:59 | disposition home or self-care (01) ==
LOC: ER 16:37
DX: M25.551 Pain in right hip (principal); W01.0XXA Fall on same level from slipping, tripping and stumbling without subsequent striking against object, initial encounter; Y93.01 Activity, walking, marching and hiking; Y92.9 Unspecified place or not applicable; I10 Essential (primary) hypertension; G20 Parkinson's disease
CPT/HCPCS: 72170; 72192; 99284